=== PATIENT | female | born 1980 | race Caucasian/White ===

== ENCOUNTER 2019-02-17 17:08 | Emergency (ER) | payer SELFPAY ==
[~2019-02-17] VITALS: Ht 157.5 cm; Wt 70.3 kg
--- NOTE | 2019-02-17 17:35 | NUR ---
DR PLAZA IN TO SEE PATIENT.
[2019-02-17] MEDS ORDERED: CLON0.5T13 (17:36)
[2019-02-17] MEDS ORDERED: LITH150C (17:36)
[2019-02-17] MEDS ORDERED: PRAZ2CAP2 PO (17:36)
[2019-02-17] MEDS ORDERED: FLUO20CA25 (17:36)
[2019-02-17] MEDS ORDERED: BENZONATATE 100 MG (TESSALON) CAPSULE PO STA (17:44)
--- NOTE | 2019-02-17 17:50 | ED Cough/URI ---
General Chief Complaint: Cough/Cold/Flu Symptoms Stated Complaint: COUGH,SOB,CONGESTED,FEVER Nursing Triage Note: COUGH/COLD SX REPORTED FOR 2 WEEKS WITHOUT IMPROVEMENT. Sepsis Screen: No Definite Risk History of Present Illness Date Seen by Provider: Feb 17, 2019 Time Seen by Provider: 17:32 38-year-old female active smoker here for 2 weeks of a cough. She has had some subjective fevers, body aches, sore throat. She does not have chest pain except she does have discomfort when she is actually coughing. She has no shortness of breath. No leg swelling. No history of blood clots. She has noticed some tiny specks of what appears to be blood in her respiratory droplets which she coughs. Iubb-rki-bqxoudq cold medicines are providing inadequate relief of her cough. Allergies and Home Medications Allergies Coded Allergies: prochlorperazine (Unverified Adverse Reaction, Unknown, 02/17/19) sulfamethoxazole (Unverified Adverse Reaction, Unknown, 02/17/19) trimethoprim (Unverified Adverse Reaction, Unknown, 02/17/19) Patient Home Medication List Home Medication List Reviewed: Yes Review of Systems Review of Systems Constitutional: see HPI EENTM: see HPI Respiratory: see HPI Cardiovascular: no symptoms reported Gastrointestinal: no symptoms reported Genitourinary: no symptoms reported Musculoskeletal: see HPI Skin: no symptoms reported Psychiatric/Neurological: No Symptoms Reported Hematologic/Lymphatic: No Symptoms Reported Past Ajpekmk-Kboebg-Ppcfxw Hx Past Med/Social Hx: Reviewed Nursing Past Med/Soc Hx Patient Social History Alcohol Use: Denies Use Recreational Drug Use: No Smoking Status: Current Everyday Smoker Type Used: Cigarettes Recent Foreign Travel: No Contact w/Someone Who Travel: No Recent Infectious Disease Expo: No Recent Hopitalizations: No Physical Abuse: No Sexual Abuse: No Mistreated: No Fear: No Seasonal Allergies Seasonal Allergies: No Past Medical History Surgeries: Yes (C/S X 3) Appendectomy, Section, Gallbladder, Tonsillectomy Respiratory: No Cardiac: No Neurological: No : No Genitourinary: No Gastrointestinal: No Musculoskeletal: No Endocrine: No HEENT: No Cancer: No Psychosocial: Yes (night terrors) Anxiety, PTSD, Depression Integumentary: No Blood Disorders: No Physical Exam Vital Signs - First Documented Capillary Refill : Less Than 3 Seconds Height: 5'2.00" Weight: 155lbs. oz. 70.403026bg; BMI Method:Stated General Appearance: no apparent distress (intermittent dry sounding cough) HEENT: other (pharynx is minimally erythematous, there is an upper denture in place, there is some friable appearing mucosa on the bilateral nasal septa) Neck: supple Respiratory: lungs clear, no respiratory distress, no accessory muscle use; No crackles, No rales, No rhonchi, No stridor, No wheezing, No plerual rub Cardiovascular: normal peripheral pulses, regular rate, rhythm, no edema Gastrointestinal: non tender, soft Neurologic/Psychiatric: alert, oriented x 3; No abnormal gait Skin: warm/dry Progress/Results/Core Measures Suspected Sepsis Recent Fever Within 48 Hours: No Infection Criteria Present: Suspected New Infection New/Unexplained Altered Menta: No Sepsis Screen: No Definite Risk SIRS Temperature:97.3 Pulse: 94 Respiratory Rate: 20 Blood Pressure 117 /66 Mean: 83 Results/Orders My Orders Orders - RAD PLAZA DO Chest Pa/Lat (2 View) (02/17/19 17:44) Benzonatate Capsule (Tessalon Perles) (02/17/19 17:44) Vital Signs/I&O 02/17/19 02/17/19 17:15 17:15 Temp 97.3 Pulse 94 Resp 20 B/P (MAP) 117/66 (83) Pulse Ox 99 O2 Delivery Room Air Room Air Capillary Refill : Less Than 3 Seconds Blood Pressure Mean: 83 Progress Note : Progress Note 38-year-old female smoker here with cough, body aches, sore throat. We'll check a chest x-ray for evidence of pneumonia. She does have a history of small hemoptysis with this potentially, however it is unlikely that this is caused by a vascular malformation or a PE, therefore I think we can defer CT angiography or sending a d-dimer. I will treat patient symptomatically with Tessalon. Plan is to discharge with Tessalon to be used as needed if chest x-ray is unremarkable, antibiotics likely indicated even if negative as this can be considered complicated bronchitis. Follow-up with primary care physician. I already advised patient that she is to return immediately or call 911 for any new or worsening symptoms. Departure Impression Primary Impression: Acute bronchitis, complicated Disposition: 01 HOME, SELF-CARE Condition: Stable Departure-Patient Inst. Referrals: NO,LOCAL PHYSICIAN (PCP) Primary Care Physician Patient Instructions: Acute Bronchitis, Adult (DC) Scripts Azithromycin (Azithromycin) 250 Mg Tablet 250 MG PO UD, #6 TAB TAKE 2 TABLETS ON DAY ONE THEN TAKE 1 TABLET DAILY FOR FOUR MORE DAYS Prov: RAD PLAZA DO 02/17/19 Benzonatate (TESSALON PERLES) 100 Mg Capsule 200 MG PO BID PRN for COUGH for 7 Days, #20 CAP Prov: RAD PLAZA DO 02/17/19 RAD PLAZA DO Feb 17, 2019 17:49
--- NOTE | 2019-02-17 17:59 | NUR ---
TESSALON PERLES 200 MG P.O. GIVEN AT THIS TIME ON RETURN FROM XRAY.
--- NOTE | 2019-02-17 18:02 | Diagnostic Imaging Report ---
INDICATION: 2 week history of cough. TECHNIQUE: Two view chest 5:40 PM CORRELATION STUDY: None FINDINGS: The heart size, mediastinal configuration and pulmonary vasculature are within normal limits. The lungs are clear with no consolidating infiltrate. There is no significant pleural effusion or pneumothorax. Visualized osseous structures are unremarkable. IMPRESSION: 1. No radiographic evidence for acute abnormality of the chest. Dictated by: Dictated on workstation # [id number]
[2019-02-17] MEDS ORDERED: AZIT250T12 PO (18:09)
[2019-02-17] MEDS ORDERED: BENZ100C18 PO (18:09)
[2019-02-17 18:16] VITALS: BP 117/66
--- NOTE | 2019-02-17 18:16 | NUR ---
PT DISCHARGED AMBULATORY VERBALIZING UNDERSTANDING OF HOME INSTRUCTIONS REVIEWED.
== END 2019-02-17 18:16 | disposition home or self-care (01) ==
LOC: ER FS 17:10
DX: J20.9 Acute bronchitis, unspecified (principal); F41.9 Anxiety disorder, unspecified; F43.10 Post-traumatic stress disorder, unspecified; F32.9 Major depressive disorder, single episode, unspecified; F17.210 Nicotine dependence, cigarettes, uncomplicated; Z88.2 Allergy status to sulfonamides; Z88.8 Allergy status to other drugs, medicaments and biological substances; Z90.49 Acquired absence of other specified parts of digestive tract; Z98.890 Other specified postprocedural states; Z90.89 Acquired absence of other organs
CPT/HCPCS: 71046

== ENCOUNTER 2019-08-03 20:56 | Emergency (ER) | payer SELFPAY ==
[~2019-08-03] VITALS: Ht 157.5 cm; Wt 69.1 kg
[~2019-08-03 20:56] MED LIST: AZIT250T12 PO; BENZ100C18 PO; CLON0.5T13; FLUO20CA25; LITH150C; PRAZ2CAP2 PO
[2019-08-03] MEDS ORDERED: ONDANSETRON 4 MG (ZOFRAN) ORAL DISSOLVE TAB PO STA (21:14)
[2019-08-03] MEDS ORDERED: KETOROLAC 60 MG/2 ML VIAL IM STA (21:14)
--- NOTE | 2019-08-03 21:21 | ED Lower Extremity ---
General Chief Complaint: Lower Extremity Stated Complaint: RIGHT FOOT PAIN Nursing Triage Note: pt states she fell while getting out of car, co right foot , ankle, and izaguirre pain. Nursing Sepsis Screen: No Definite Risk Source: patient, family History of Present Illness Date Seen by Provider: Aug 03, 2019 Time Seen by Provider: 21:02 Initial Comments 39-year-old female presenting with complaints of right foot and leg pain. She states that she had gotten out of car about an hour ago and was starting to larry after one of the children when she felt something snap in her foot and ankle. She has had severe pain since then. She initially thought it was a bad sprain and that she could just walk off but the pain has worsened. She has not taken anything for the pain. She has not done any ice or elevation of the leg. She came in to the emergency department because she felt like the pain was getting worse. She states that her ankle and foot had swelling immediately after the injury. She denies any prior injuries to the foot or ankle. She has some pain up near her knee as well. Allergies and Home Medications Allergies Coded Allergies: prochlorperazine (Unverified Adverse Reaction, Unknown, 02/17/19) sulfamethoxazole (Unverified Adverse Reaction, Unknown, 02/17/19) trimethoprim (Unverified Adverse Reaction, Unknown, 02/17/19) Home Medications Azithromycin 250 Mg Tablet, 250 MG PO UD TAKE 2 TABLETS ON DAY ONE THEN TAKE 1 TABLET DAILY FOR FOUR MORE DAYS Prescribed by: RAD PLAZA on 02/17/191808 Benzonatate 100 Mg Capsule, 200 MG PO BID PRN for COUGH Prescribed by: RAD PLAZA on 02/17/191808 Ibuprofen 800 Mg Tablet, 800 MG PO Q8H PRN for PAIN Prescribed by: LIT SCOTT on 08/03/19 2200 Patient Home Medication List Home Medication List Reviewed: Yes Review of Systems Constitutional: No chills, No fever EENTM: no symptoms reported Respiratory: no symptoms reported Cardiovascular: no symptoms reported Gastrointestinal: no symptoms reported Genitourinary: no symptoms reported Musculoskeletal: see HPI Skin: no symptoms reported Past Wkqqsfo-Cteohw-Wpjhve Hx Past Med/Social Hx: Reviewed Nursing Past Med/Soc Hx Patient Social History Alcohol Use: Denies Use Recreational Drug Use: No Type Used: Cigarettes Recent Foreign Travel: No Contact w/Someone Who Travel: No Recent Infectious Disease Expo: No Recent Hopitalizations: No Physical Abuse: No Sexual Abuse: No Mistreated: No Fear: No Seasonal Allergies Seasonal Allergies: No Past Medical History Surgeries: Yes (C/S X 3) Appendectomy, Section, Gallbladder, Tonsillectomy Respiratory: No Cardiac: No Neurological: No Genitourinary: No Gastrointestinal: No Musculoskeletal: No Endocrine: No HEENT: No Cancer: No Psychosocial: Yes (night terrors) Anxiety, PTSD, Depression Integumentary: No Blood Disorders: No Physical Exam Vital Signs Vital Signs - First Documented 08/03/19 21:04 Temp 37.2 Pulse 110 Resp 16 B/P (MAP) 108/52 (70) Pulse Ox 97 O2 Delivery Room Air Capillary Refill : Less Than 3 Seconds Height, Weight, BMI Height: 5'2.00" Weight: 155lbs. oz. 70.469597to; 27.00 BMI Method:Stated General Appearance: WD/WN, mild distress Cardiovascular: normal peripheral pulses Knees: right knee bone tenderness (just below her knee and over proximal fibula) Ankles: right ankle limited range of motion (due to pain), right ankle pain (medial aspect of ankle and foot) Feet: right foot pain (medial ankle and proximal foot) Neurologic/Tendon: normal sensation, normal motor functions, normal tendon functions Neurologic/Psychiatric: alert, oriented x 3 Skin: normal color, warm/dry Progress/Results/Core Measures Results/Orders My Orders Orders - LIT SCOTT MD Ketorolac Injection (Toradol Injection) (08/03/19 21:14) Ondansetron Oral Dissolve Tab (Zofran (08/03/19 21:14) Tibia Fibula 2 View Right (08/03/19 21:28) Foot 3 View Right (08/03/19 21:28) Orthopedic Equiment (08/03/19 22:06) Crutches (08/03/19 22:06) Vital Signs/I&O 08/03/19 08/03/19 21:04 22:17 Temp 37.2 37.2 Pulse 110 110 Resp 16 16 B/P (MAP) 108/52 (70) 108/52 (70) Pulse Ox 97 97 O2 Delivery Room Air Blood Pressure Mean: 70 Progress Progress Note #1: Progress Note Toradol for pain and Zofran ODT for nausea as pt reports the pain is so bad that it is making her nauseated. 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 will check xrays of the foot and tib/fib so the ankle would be included. Progress Note #2: Progress Note No acute fracture or dislocation seen on imaging. counseled on follow up and return precautions. Treat symptomatically and RICE therapy. check with clinic if not improving Diagnostic Imaging Diagonstic Imaging: Xray Plain Films/CT/US/NM/MRI: leg (and foot) Comments NAME: BEAU GUZMAN [facility] REC#: [id number] PT STATUS: REG ER : 1980 PHYSICIAN: LIT SCOTT MD ADMIT DATE: 08/03/19/ER FS Draft Date of Exam:08/03/19 TIBIA FIBULA 2 VIEW RIGHT INDICATION: Injury to right leg AP and lateral views of the right tibia and fibula performed. No fracture or acute bony abnormality is seen. IMPRESSION: Negative right tibia and fibula. Dictated on workstation # [id number] Dict: 08/03/192148 Trans: 08/03/192151 MARIPOSA [id number] Interpreted by: MEGAN ADORNO MD Electronically signed by: NAME: BEAU GUZMAN [facility] REC#: [id number] PT STATUS: REG ER : 1980 PHYSICIAN: LIT SCOTT MD ADMIT DATE: 08/03/19/ER FS Draft Date of Exam:08/03/19 FOOT 3 VIEW RIGHT INDICATION: Injury to right foot. AP, oblique, and lateral views of the right foot are obtained. No fracture or acute bony abnormality is seen. Joint spaces are unremarkable. IMPRESSION: Negative right foot. Dictated on workstation # [id number] Dict: 08/03/192148 Trans: 08/03/192150 [place] [id number] Interpreted by: MEGAN ADORNO MD Electronically signed by: Reviewed: Reviewed by Me Departure Impression Primary Impression: Right ankle sprain Qualified Codes: S93.401A - Sprain of unspecified ligament of right ankle, initial encounter Additional Impression: Right foot sprain Qualified Codes: S93.601A - Unspecified sprain of right foot, initial encounter Disposition: HOME, SELF-CARE Condition: Stable Departure-Patient Inst. Decision time for Depature: 21:59 Referrals: NO,LOCAL PHYSICIAN (PCP) Primary Care Physician [facility] Patient Instructions: Ankle Sprain (DC), Foot Sprain (DC), How to Use Crutches Add. Discharge Instructions: Ice 20-30 minutes every few hours as needed for pain and swelling. Weight bearing as tolerated. Check with clinic or Orthopedics if not improving in the next week All discharge instructions reviewed with patient and/or family. Voiced under standing. Scripts Ibuprofen (Ibuprofen) 800 Mg Tablet 800 MG PO Q8H PRN for PAIN for 10 Days, #30 TAB 0 Refills Prov: LIT SCOTT MD 08/03/19 LIT SCOTT MD Aug 03, 2019 21:20
--- NOTE | 2019-08-03 21:51 | Diagnostic Imaging Report ---
INDICATION: Injury to right foot. AP, oblique, and lateral views of the right foot are obtained. No fracture or acute bony abnormality is seen. Joint spaces are unremarkable. IMPRESSION: Negative right foot. Dictated by: Dictated on workstation # [id number]
--- NOTE | 2019-08-03 21:52 | Diagnostic Imaging Report ---
INDICATION: Injury to right leg AP and lateral views of the right tibia and fibula performed. No fracture or acute bony abnormality is seen. IMPRESSION: Negative right tibia and fibula. Dictated by: Dictated on workstation # [id number]
[2019-08-03] MEDS ORDERED: IBUP-1780 PO (22:00)
--- NOTE | 2019-08-03 22:15 | NUR ---
pt called mother and they have crutches at home pt can use, pt refused our crutches
[2019-08-03 22:17] VITALS: BP 108/52
== END 2019-08-03 22:17 | disposition home or self-care (01) ==
LOC: EDUNIT# 20:56 → ER FS 20:57
DX: S93.401A Sprain of unspecified ligament of right ankle, initial encounter (principal); S93.601A Unspecified sprain of right foot, initial encounter; F41.9 Anxiety disorder, unspecified; F32.9 Major depressive disorder, single episode, unspecified; F43.10 Post-traumatic stress disorder, unspecified; Z88.1 Allergy status to other antibiotic agents; Z88.2 Allergy status to sulfonamides; Z90.49 Acquired absence of other specified parts of digestive tract; Z90.89 Acquired absence of other organs; X50.1XXA Overexertion from prolonged static or awkward postures, initial encounter
CPT/HCPCS: 73590; 73630

== ENCOUNTER 2020-04-10 10:10 | Emergency (ER) | payer SELFPAY ==
[~2020-04-10] VITALS: Ht 157 cm; Wt 74.6 kg
[~2020-04-10 10:10] MED LIST changes: -CLON0.5T13; +CLON0.5T4; -FLUO20CA25; +FLUO20CA46; +IBUP-1780 PO
--- OUTSIDE RECORDS SUMMARY | 2020-04-10 10:14 | XMS REPORT ---
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00 14 Aug, 2018 0 198 584423 Problem Anxiety state F41.1 14 Aug, 2018 0 198 478530 Problem Acute bronchitis J20.9 May, 0 96640767 Problem Severe episode of recurrent major depressive disorder, without psychotic features F33.2 Active 38369598 Problem Insomnia G47.00 Active 412317457 Problem Depression F32.9 Aug, 0 331449 005 Problem Sciatic pain, right 724.3 Jan, 0 18440595 Problem Lymphocytosis D72.820 Active 833081 09 Problem Acute bronchitis 466.0 13 May, 2013 0 71998957 Problem Night terrors, adult 307.46 14 Aug, 2018 0 568220624 Problem Sciatic pain, right M54.31 Jan, 0 48065577 Problem PTSD (post-traumatic stress disorder) F43.10 Active 07813612 Problem Anxiety F41.9 Active 41698946 Problem Sleep terrors [night terrors] F51.4 Active 652139746 Problem Anxiety disorder, unspecified F41.9 Active 899189636 ALLERGIES No Information ENCOUNTERS Encounter Location Date Diagnosis [facility] [address] [id number] [place] [address] Dec, Anxiety F41.9 [facility] [address] [id number] [place] [address] Nov, [facility] [address] [place] [address] RD [id number] [place] [address] Nov, Anxiety F41.9 [facility] [address] [place], [place] [address] [id number] [place] [address] Oct, Lymphocytosis D72.820 [facility] [address] [place] [address] RD [id number] [place] [address] Oct, Sleep terrors [night terrors] F51.4 ; PT SD (post-traumatic stress disorder) F43.10 and Encounter for immunization Z23 [facility] [address] [place] [address] RD [id number] [place] [address] Sep, [facility] F41.9 [facility] [address] [place], [place] [address] [place] [id number] [place] [address] Aug, [facility] [address] [place] [address] RD [id number] [place] [address] Aug, Anxiety F41.9 ; PTSD (post-traumatic str ess disorder) F43.10 ; Depression F32.9 ; Night terrors, adult F51.4 and Insomnia G47.00 [facility] [address] [place] [address] RD [id number] [place] [address] Jul, Medication monitoring encounter Z51.81 [facility] [id number] [place] [address] Jun, Medication monitoring encounter Z51.81 [facility] [address] [id number] [place] [address] May, Medication monitoring encounter Z51.81 ; Sleep terrors [night terrors] F51.4 and PTSD (post-traumatic stress disorder) F43.10 [facility] [address] [place] [address] RD [id number] [place] [address] Mar, [facility] [id number] [place] [address] Mar, Medication monitoring encounter Z51.[address] [id number] [place] [address] Mar, Medication monitoring encounter Z51.[address] [id number] [place] [address] February, Medication monitoring encounter Z51.81 ; PTSD (post-traumatic stress disorder) F43.10 ; Depression F32.9 ; Anxiety disorder, unspecified F41.9 and Sleep terrors [night terrors] F51.4 [facility] [address] [place], [place] [address] [id number] [place] [address] February, Medication monitoring encounter Z51.[address] [place], [place] [address] RD [id number] [place] [address] February, Medication monitoring encounter Z51.[address] [place], [place] [address] [id number] [place] [address] February, Medication monitoring encounter Z51.[address] [place], [place] [address] [id number] [place] [address] Jan, Medication monitoring encounter Z51.[address] [place], [place] [address] [place] [id number] [place] [address] Jan, Medication monitoring encounter Z51.81 a nd Anxiety F41.9 [facility] [address] [id number] [place] [address] Dec, Medication monitoring encounter Z51.[address] [id number] [place] [address] Dec, Medication monitoring encounter Z51.81 ; Severe episode of recurrent major depressive disorder, without psychotic features F33.2 ; PTSD (post- traumatic stress disorder) F43.10 and Anxiety F41.9 [facility] [address] [place], [place] [address] [id number] [place] [address] Nov, [facility] [address] [id number] [place] [address] Nov, [facility] [address] [id number] [place] [address] Oct, [facility] [place] [address] [facility] [id number] [place] [address] Oct, [facility] [address] [facility] [id number] [address] [place] [address] Sep, [facility] [address] [facility] [id number] [address] [place] [address] Sep, [facility] [address] [facility] [id number] [address] [place] [address] Sep, [facility] [address] [facility] [id number] [address] [place] [address] Aug, IMMUNIZATIONS No Known Immunizations SOCIAL HISTORY Never Assessed REASON FOR VISIT refill PLAN OF CARE VITAL SIGNS MEDICATIONS Medication Instructions Dosage Frequency Start Date End Date Duration S tatus Klonopin 0.5 MG Orally bid prn 1 tablet Oct, 28 days Active RESULTS No Results PROCEDURES No Known procedures INSTRUCTIONS MEDICATIONS ADMINISTERED No Known Medications MEDICAL (GENERAL) HISTORY Type Description Date Medical History depression Medical History sciatic pain-right Medical History anxiety Medical History PTSD Surgical History cholecystectomy Surgical History appendectomy Surgical History tonsillectomy Surgical History section x 3 Surgical History D n C x 2 Hospitalization History surgeries
--- OUTSIDE RECORDS SUMMARY | 2020-04-10 10:14 | XMS REPORT | Continuity of Care Document ---
Author Organization Unknown Address Unknown Phone Unavailable Allergies Active Description Code Type Severity Reaction Onset Reported/Identified Relationship to Patient Clinical Status Yes prochlorperazine [id number] Drug Allergy Unknown N/A 02/17/2019 Yes sulfamethoxazole [id number] Drug Allergy Unknown N/A 02/17/2019 Yes trimethoprim [id number] Drug Allergy Unknown N/A 02/17/2019 Medications There is no data. Problems Date Dx Coded Attending Type Code Diagnosis Diagnosed By 02/17/2019 RAD PLAZA DO Ot F17.210 NICOTINE DEPENDENCE, CIGARETTES, UNCOMPL 02/17/2019 RAD PLAZA DO T Ot F32. 9 MAJOR DEPRESSIVE DISORDER, SINGLE EPISOD 02/17/2019 RAD PLAZA DO Ot F41. 9 ANXIETY DISORDER, UNSPECIFIED 02/17/2019 RAD PLAZA DO T Ot F43. 10 POST-TRAUMATIC STRESS DISORDER, UNSPECIF 02/17/2019 RAD PLAZA DO Ot J20. 9 ACUTE BRONCHITIS, UNSPECIFIED 02/17/2019 RAD PLAZA DO Ot R05 COUGH 02/17/2019 RAD PLAZA DO T Ot Z88. 2 ALLERGY STATUS TO SULFONAMIDES STATUS 02/17/2019 RAD PLAZA DO T Ot Z88. 8 ALLERGY STATUS TO OTH DRUG/MEDS/BIOL SUB 02/17/2019 RAD PLAZA DO T Ot Z90. 49 ACQUIRED ABSENCE OF OTHER SPECIFIED PART 02/17/2019 RAD PLAZA DO T Ot Z90. 89 ACQUIRED ABSENCE OF OTHER ORGANS 02/17/2019 RAD PLAZA DO T Ot Z98.890 OTHER SPECIFIED POSTPROCEDURAL STATES 02/20/2019 RAD PLAZA DO Ot F17.210 NICOTINE DEPENDENCE, CIGARETTES, UNCOMPL 02/20/2019 RAD PLAZA DO T Ot F32. 9 MAJOR DEPRESSIVE DISORDER, SINGLE EPISOD 02/20/2019 RAD PLAZA DO T Ot F41. 9 ANXIETY DISORDER, UNSPECIFIED 02/20/2019 RAD PLAZA DO T Ot F43. 10 POST-TRAUMATIC STRESS DISORDER, UNSPECIF 02/20/2019 BOLA QUINONES, RAD T Ot J20. 9 ACUTE BRONCHITIS, UNSPECIFIED 02/20/2019 BOLA QUINONESDARRYLED T Ot R05 COUGH 02/20/2019 BOLA QUINONESRAD T Ot Z88. 2 ALLERGY STATUS TO SULFONAMIDES STATUS 02/20/2019 BOLA QUINONESDARRYLED T Ot Z88. 8 ALLERGY STATUS TO OTH DRUG/MEDS/BIOL SUB 02/20/2019 BOLA QUINONESDARRYLED T Ot Z90. 49 ACQUIRED ABSENCE OF OTHER SPECIFIED PART 02/20/2019 BOLA QUINONES RAD T Ot Z90. 89 ACQUIRED ABSENCE OF OTHER ORGANS 02/20/2019 BOLA QUINONESDARRYLED T Ot Z98.890 OTHER SPECIFIED POSTPROCEDURAL STATES 08/03/2019 LIT SCOTT MD, Ot F32.9 MAJOR DEPRESSIVE DISORDER, SINGLE EPISOD 08/03/2019 LIT SCOTT MD, Ot F41.9 ANXIETY DISORDER, UNSPECIFIED 08/03/2019 LIT SCOTT MD, Ot F43.1 0 POST-TRAUMATIC STRESS DISORDER, UNSPECIF 08/03/2019 LTI SCOTT MD Ot M79.6 71 PAIN IN RIGHT FOOT 08/03/2019 LIT SCOTT MD, Ot S93.401A SPRAIN OF UNSPECIFIED LIGAMENT OF RIGHT 08/03/2019 LIT SCOTT MD, Ot S93.601A UNSPECIFIED SPRAIN OF RIGHT FOOT, INITIA 08/03/2019 LIT SCOTT MD, Ot X50.1XXA OVEREXERTION FROM PROLONGED STATIC OR AW 08/03/2019 LIT SCOTT MD, Ot Z88.1 ALLERGY STATUS TO OTHER ANTIBIOTIC AGENT 08/03/2019 LIT SCOTT MD, Ot Z88.2 ALLERGY STATUS TO SULFONAMIDES STATUS 08/03/2019 LIT SCOTT MD, Ot Z90.4 9 ACQUIRED ABSENCE OF OTHER SPECIFIED PART 08/03/2019 LIT SCOTT MD, Ot Z90.8 9 ACQUIRED ABSENCE OF OTHER ORGANS 08/09/2019 LIT SCOTT MD, Ot F32.9 MAJOR DEPRESSIVE DISORDER, SINGLE EPISOD 08/09/2019 LIT SCOTT MD, Ot F41.9 ANXIETY DISORDER, UNSPECIFIED 08/09/2019 LIT SCOTT MD, Ot F43.1 0 POST-TRAUMATIC STRESS DISORDER, UNSPECIF 08/09/2019 LIT SCOTT MD, Ot M79.6 71 PAIN IN RIGHT FOOT 08/09/2019 LIT SCOTT MD, Ot S93.401A SPRAIN OF UNSPECIFIED LIGAMENT OF RIGHT 08/09/2019 LIT SCOTT MD, Ot S93.601A UNSPECIFIED SPRAIN OF RIGHT FOOT, INITIA 08/09/2019 LIT SCOTT MD, Ot X50.1XXA OVEREXERTION FROM PROLONGED STATIC OR AW 08/09/2019 LIT SCOTT MD, Ot Z88.1 ALLERGY STATUS TO OTHER ANTIBIOTIC AGENT 08/09/2019 LIT SCOTT MD, Ot Z88.2 ALLERGY STATUS TO SULFONAMIDES STATUS 08/09/2019 LIT SCOTT MD, Ot Z90.4 9 ACQUIRED ABSENCE OF OTHER SPECIFIED PART 08/09/2019 LIT SCOTT MD, Ot Z90.8 9 ACQUIRED ABSENCE OF OTHER ORGANS Procedures There is no data. Results Test Result Range LITHIUM (ESKALITH(R)), SERUM - 01/01/19 15:12 LITHIUM <0.3 mmol/L 0.6-1.2 PDM - 09 PANEL (PROFILE 1) - 01/01/19 15 :12 Prescribed Drug 1 Klonopin(TM) NRG Creatinine 24.4 mg/dL > or = 20.0 pH 7.01 4.5 - 9.0 Oxidant NEGATIVE mcg/mL <200 Amphetamines NEGATIVE ng/mL <500 medMATCH Amphetamines CONSISTENT NRG Benzodiazepines POSITIVE ng/mL <100 Marijuana Metabolite NEGATIVE ng/mL <20 medMATCH Marijuana Metab CONSISTENT NRG Cocaine Metabolite NEGATIVE ng/mL <150 medMATCH Cocaine Metab CONSISTENT NRG Opiates NEGATIVE ng/mL <100 medMATCH Opiates CONSISTENT NRG Oxycodone NEGATIVE ng/mL <100 medMATCH Oxycodone CONSISTENT NRG COMMENT NRG Alphahydroxyalprazolam NEGATIVE ng/mL <25 medMATCH aOH alprazolam CONSISTENT NRG Alphahydroxymidazolam NEGATIVE ng/mL < 50 medMATCH aOH midazolam CONSISTENT NRG Alphahydroxytriazolam NEGATIVE ng/mL < 50 medMATCH aOH triazolam CONSISTENT NRG Aminoclonazepam 61 ng/mL <25 medMATCH Aminoclonazepam CONSISTENT NRG Hydroxyethylflurazepam NEGATIVE ng/mL <50 medMATCH OH,Et flurazepam CONSISTENT NR G Lorazepam NEGATIVE ng/mL <50 medMATCH Lorazepam CONSISTENT NRG Nordiazepam NEGATIVE ng/mL <50 medMATCH Nordiazepam CONSISTENT NRG Oxazepam NEGATIVE ng/mL <50 medMATCH Oxazepam CONSISTENT NRG Temazepam NEGATIVE ng/mL <50 medMATCH Temazepam CONSISTENT NRG Barbiturates NEGATIVE ng/mL <300 medMATCH Barbiturates CONSISTENT NRG Methadone Metabolite NEGATIVE ng/mL <100 medMATCH Methadone Metab CONSISTENT NRG Phencyclidine NEGATIVE ng/mL <25 medMATCH Phencyclidine CONSISTENT NRG LITHIUM (ESKALITH(R)), SERUM - 03/27/19 09:21 LITHIUM 1.0 mmol/L 0.6-1.2 VALPROIC ACID/DEPAKOTE - 10/31/19 10:34 VALPROIC ACID <12.5 mg/L 50.0-100.0 Encounters ACCT No. Visit Date/Time Discharge Status Pt. Type Provider Facility Loc./Unit Complaint [id number] 10/31/2019 10:00:00 10/31/2019 23:59: 59 [id number] 10/31/2019 10:00:00 Document Registration [id number] 03/27/2019 09:00:00 Document Registration [id number] 01/01/2019 13:20:00 Document Registration [id number] 08/03/2019 20:57:00 22:17:00 DIS Emergency LIT SCOTT MD [facility] ER FS RIGHT FOOT PAIN [id number] 02/17/2019 17:10:00 18:16:00 DIS Emergency RAD PLAZA DO [facility] ER FS COUGH,SOB,CONGESTED,FEV ER
[2020-04-10] MEDS ORDERED: morphine INJ 10 MG/ML 1ML (SYR OR VIAL) IVP STA (10:33)
[2020-04-10] MEDS ORDERED: ONDANSETRON 4 MG/2 ML (SDV) Z0FRAN IVP ONE (10:45)
[2020-04-10 11:00] LABS: BASOPHILS # (AUTO) 0.1 10^3/uL (0.0-0.1); BASOPHILS % (AUTO) 1 % (0-10); EOSINOPHILS # (AUTO) 0.2 10^3/uL (0.0-0.3); EOSINOPHILS % (AUTO) 1 % (0-10); HEMATOCRIT 42 % (35-52); HEMOGLOBIN 14.2 G/DL (11.5-16.0); LYMPHOCYTES # (AUTO) 2.3 X 10^3 (1.0-4.0); LYMPHOCYTES % (AUTO) 15 % (12-44); MEAN CORPUSCULAR HEMOGLOBIN 31 PG (25-34); MEAN CORPUSCULAR HGB CONC 34 G/DL (32-36); MEAN CORPUSCULAR VOLUME 90 FL (80-99); MEAN PLATELET VOLUME 10.4 FL (7.4-10.4); MONOCYTES # (AUTO) 0.7 X 10^3 (0.0-1.0); MONOCYTES % (AUTO) 4 % (0-12); NEUTROPHILS # (AUTO) 12.4 X 10^3 (1.8-7.8); NEUTROPHILS % (AUTO) 79 % (42-75); PLATELET COUNT 414 10^3/uL (130-400); RED CELL DISTRIBUTION WIDTH 12.2 % (10.0-14.5); WHITE BLOOD COUNT 15.8 10^3/uL (4.3-11.0)
[2020-04-10 11:13] LABS: BILIRUBIN,URINE NEGATIVE (NEGATIVE); CLARITY,URINE CLEAR; COLOR,URINE DARK YELLOW; GLUCOSE, URINE (UA) NEGATIVE (NEGATIVE); KETONES,URINE NEGATIVE (NEGATIVE); NITRITE,URINE POSITIVE (NEGATIVE); PH,URINE 6.5 (5-9); PROTEIN,URINE NEGATIVE (NEGATIVE)
[2020-04-10 11:14] LABS: BACTERIA,URINE TRACE /HPF; LEUKOCYTE ESTERASE ,URINE NEGATIVE (NEGATIVE); RBC,URINE 0-2 /HPF
[2020-04-10] MEDS ORDERED: NS 100 ML (IVPB) BAG IV ONE (11:15)
[2020-04-10] MEDS ORDERED: CATHETER FLUSH 10 ML SYR IV PRN (11:15)
[2020-04-10] MEDS ORDERED: IOHEXOL 350 MG/ML 100 ML (OMNIPAQUE 350) VIAL IV ONE (11:15)
[2020-04-10] MEDS ORDERED: HOLD METFORMIN - RECEIVED CONTRAST 20 ML VIAL IV SCH (11:15)
[2020-04-10 11:26] LABS: BAND NEUTROPHILS 3 %; LYMPHOCYTES % (MANUAL) 6 %; NEUTROPHILS % (MANUAL) 77 %
[2020-04-10 11:27] LABS: ATYPICAL LYMPHOCYTES 9 %; BASOPHILS % (MANUAL) 0 %; EOSINOPHILS % (MANUAL) 0 %; MONOCYTES % (MANUAL) 4 %
[2020-04-10 11:28] LABS: PLATELET ESTIMATE INCREASED; RBC MORPH NORMAL
--- NOTE | 2020-04-10 11:28 | ED Abdominal Pain ---
General Chief Complaint: Abdominal/GI Problems Stated Complaint: ABD PAIN Nursing Triage Note: Is having right sided abdominal pain, flank pain, and pain radiating down the back of her right leg. Has been ongoing for past 2 months. Has hx of kidney stones, so she assumed that's what it was from. Started vomiting 2 days ago from the pain. Pain rated at 8/10 currently. Has taken tylenol and ibuprofen for pain, last dose was 1000 mg tylenol at 0530 this morning. Sepsis Screen: No Definite Risk Source of Information: Patient History of Present Illness Date Seen by Provider: Apr 10, 2020 Time Seen by Provider: 11:00 Initial Comments Patient is a 40-year-old female presents with intermittent right upper quadrant pain radiating to right flank 2 months. Pain is moderate distress. Described as sharp and is worse with palpation and movement. Is partially improved with position change and rest. Patient is being evaluated by her primary care doctor for her symptoms prior to today. Patient reports nausea vomiting onset us morning 30 minutes prior to ED arrival and watery diarrhea for the past week. Patient denies fever chills, sweats. Previous appendectomy, cholecystectomy and history of kidney stones. No urinary frequency urgency or dysuria. Patient is currently on her menstrual period. Timing/Duration: Changing Over Time, Getting Worse, Other Severity/Quality: Moderate Location: RUQ Radiation: Back Activities at Onset: None Modifying Factors: Improves With Movement, Improves With Palpation Associated Symptoms: Nausea/Vomiting Allergies and Home Medications Allergies Coded Allergies: prochlorperazine (Unverified Adverse Reaction, Unknown, 02/17/19) sulfamethoxazole (Unverified Adverse Reaction, Unknown, 02/17/19) trimethoprim (Unverified Adverse Reaction, Unknown, 02/17/19) Home Medications Azithromycin 250 Mg Tablet, 250 MG PO UD TAKE 2 TABLETS ON DAY ONE THEN TAKE 1 TABLET DAILY FOR FOUR MORE DAYS Prescribed by: RAD PLAZA on 02/17/191808 Benzonatate 100 Mg Capsule, 200 MG PO BID PRN for COUGH Prescribed by: RAD PLAZA on 02/17/191808 Ibuprofen 800 Mg Tablet, 800 MG PO Q8H PRN for PAIN Prescribed by: LIT SCOTT on 08/03/19 2200 Patient Home Medication List Home Medication List Reviewed: Yes Review of Systems Review of Systems Constitutional: see HPI EENTM: See HPI Respiratory: See HPI Cardiovascular: See HPI Gastrointestinal: See HPI Genitourinary: See HPI Musculoskeletal: see HPI Skin: see HPI Psychiatric/Neurological: See HPI Endocrine: See HPI Hematologic/Lymphatic: See HPI All Other Systems Reviewed Negative Unless Noted: Yes Past Wlcjfew-Qyiujr-Uakxwv Hx Past Med/Social Hx: Reviewed Nursing Past Med/Soc Hx Patient Social History Alcohol Use: Denies Use Recreational Drug Use: No Smoking Status: Current Everyday Smoker Type Used: Cigarettes 2nd Hand Smoke Exposure: Yes Recent Foreign Travel: No Contact w/Someone Who Travel: No Recent Infectious Disease Expo: No Recent Hopitalizations: No Seasonal Allergies Seasonal Allergies: No Past Medical History Surgeries: Yes (C/S X 3) Appendectomy, Section, Gallbladder, Tonsillectomy Respiratory: No Cardiac: No Neurological: No Genitourinary: No Gastrointestinal: Yes (kidney stones) Musculoskeletal: No Endocrine: No HEENT: No Cancer: No Psychosocial: Yes (night terrors) Anxiety, PTSD, Depression Integumentary: No Blood Disorders: No Physical Exam Vital Signs Vital Signs - First Documented 04/10/20 10:16 Temp 36.4 Pulse 80 Resp 16 B/P (MAP) 128/86 (100) Pulse Ox 98 Capillary Refill : Less Than 3 Seconds Height/Weight/BMI Height: 5'2.00" Weight: 155lbs. oz. [id number]; 30.00 BMI Method:Stated General Appearance: WD/WN, no apparent distress HEENT: PERRL/EOMI, normal ENT inspection Neck: non-tender, full range of motion, supple, normal inspection Respiratory: lungs clear Cardiovascular: regular rate, rhythm Gastrointestinal: soft, other (RUQ PAIN/TENDERNESS) Extremities: normal range of motion, non-tender Back: normal inspection Neurologic/Psychiatric: emergency medical service manager II-XII nml as tested, no motor/sensory deficits, alert Skin: normal color Focused Exam Sepsis Stage: Ruled Out Progress/Results/Core Measures Results/Orders Lab Results Laboratory Tests Test 04/10/20 10:42 04/10/20 10:45 Range/Units White Blood Count 15.8 H 4.3-11.0 10^3/uL Red Blood Count 4.61 4.35-5.85 10^6/uL Hemoglobin 14.2 11.5-16.0 G/DL Hematocrit 42 35-52 % Mean Corpuscular Volume 90 80-99 FL Mean Corpuscular Hemoglobin 31 25-34 PG Mean Corpuscular Hemoglobin Concent 34 32-36 G/DL Red Cell Distribution Width 12.2 10.0-14.5 % Platelet Count 414 H 130-400 10^3/uL Mean Platelet Volume 10.4 7.4-10.4 FL Neutrophils (%) (Auto) 79 H 42-75 % Lymphocytes (%) (Auto) 15 12-44 % Monocytes (%) (Auto) 4 0-12 % Eosinophils (%) (Auto) 1 0-10 % Basophils (%) (Auto) 1 0-10 % Neutrophils # (Auto) 12.4 H 1.8-7.8 X 10^3 Lymphocytes # (Auto) 2.3 1.0-4.0 X 10^3 Monocytes # (Auto) 0.7 0.0-1.0 X 10^3 Eosinophils # (Auto) 0.2 0.0-0.3 10^3/uL Basophils # (Auto) 0.1 0.0-0.1 10^3/uL Neutrophils % (Manual) 77 % Lymphocytes % (Manual) 6 % Monocytes % (Manual) 4 % Eosinophils % (Manual) 0 % Basophils % (Manual) 0 % Band Neutrophils 3 % Atypical Lymphocytes 9 % Platelet Estimate INCREASED Blood Morphology Comment NORMAL Sodium Level 136 135-145 MMOL/L Potassium Level 3.7 3.6-5.0 MMOL/L Chloride Level 101 98-107 MMOL/L Carbon Dioxide Level 24 21-32 MMOL/L Anion Gap 11 5-14 MMOL/L Blood Urea Nitrogen 9 7-18 MG/DL Creatinine 0.89 0.60-1.30 MG/DL Estimat Glomerular Filtration Rate > 60 BUN/Creatinine Ratio 10 Glucose Level 110 H 70-105 MG/DL Calcium Level 10.6 H 8.5-10.1 MG/DL Corrected Calcium 8.5-10.1 MG/DL Total Bilirubin 0.5 0.1-1.0 MG/DL Aspartate Amino Transf (AST/SGOT) 17 5-34 U/L Alanine Aminotransferase (ALT/SGPT) 7 0-55 U/L Alkaline Phosphatase 67 40-136 U/L Total Protein 7.2 6.4-8.2 GM/DL Albumin 4.7 H 3.2-4.5 GM/DL Lipase 25 8-78 U/L Urine Color DARK YELLOW Urine Clarity CLEAR Urine pH 6.5 5-9 Urine Specific [place] 1.010 L 1.016-1.022 Urine Protein NEGATIVE NEGATIVE Urine Glucose (UA) NEGATIVE NEGATIVE Urine Ketones NEGATIVE NEGATIVE Urine Nitrite POSITIVE H NEGATIVE Urine Bilirubin NEGATIVE NEGATIVE Urine Urobilinogen 0.2 < = 1.0 MG/DL Urine Leukocyte Esterase NEGATIVE NEGATIVE Urine RBC (Auto) NEGATIVE NEGATIVE Urine RBC 0-2 /HPF Urine WBC 2-5 /HPF Urine Crystals NONE /LPF Urine Bacteria TRACE /HPF Urine Casts NONE /LPF Urine Mucus NEGATIVE /LPF Urine Culture Indicated YES My Orders Orders - CINDY JONES DO Cbc With Automated Diff (04/10/20 10:33) Comprehensive Metabolic Panel (04/10/20 10:33) Lipase (04/10/20 10:33) Ua Culture If Indicated (04/10/20 10:33) Urine Bedside (04/10/20 10:33) Ct Abdomen/Pelvis W (04/10/20 10:33) Morphine Injection (Morphine Injection (04/10/20 10:33) Ondansetron Injection (Zofran Injectio (04/10/20 10:45) Manual Differential (04/10/20 10:42) Iohexol Injection (Omnipaque 350 Mg/Ml 1 (04/10/20 11:15) Received Contrast (Hold Metformin- Contr (04/10/20 11:15) Sodium Chloride Flush (Catheter Flush Sy (04/10/20 11:15) Ns (Ivpb) (Sodium Chloride 0.9% Ivpb Bag (04/10/20 11:15) Urine Culture (04/10/20 10:45) Ketorolac Injection (Toradol Injection) (04/10/20 12:45) Medications Given in ED Current Medications Medications Dose Ordered Sig/Rosana Route Start Time Stop Time Status Last Admin Dose Admin Iohexol 100 ml ONCE ONCE IV 04/10/20 11:15 04/10/20 11:24 DC 04/10/20 11:33 100 ML Ondansetron HCl 4 mg ONCE ONCE IVP 04/10/20 10:45 04/10/20 10:46 DC 04/10/20 10:47 4 MG Sodium Chloride 100 ml ONCE ONCE IV 04/10/20 11:15 04/10/20 11:24 DC 6/13/20 11:34 80 ML Vital Signs/I&O 04/10/20 10:16 Temp 36.4 Pulse 80 Resp 16 B/P (MAP) 128/86 (100) Pulse Ox 98 Blood Pressure Mean: 100 Departure Communication (Admissions) CT abdomen and pelvis: Diarrhea is bowel. No evidence of obstruction or acute process. Impression Primary Impression: Abdominal pain Additional Impression: Nausea and vomiting Disposition: HOME, SELF-CARE Condition: Critical Admissions Time/Decision to Admit Time: 12:39 Departure-Patient Inst. Referrals: NO,LOCAL PHYSICIAN (PCP/Family) Primary Care Physician Patient Instructions: Diarrhea in Adolescents and Adults, Acute Abdomen (Belly Pain) Add. Discharge Instructions: Please drink clear liquids only for the next 6-12 hours and then advance to bl and diet as tolerated. Take newly prescribed medications as directed. Follow up with your PCP in 2-3 days as needed. Return to the ED if new or worsening symptoms. All discharge instructions reviewed with patient and/or family. Voiced understanding. Scripts Tramadol HCl (Tramadol HCl) 50 Mg Tablet 50 MG PO Q6H, #10 TAB Prov: CINDY JONES DO 04/10/20 Ondansetron (Ondansetron Odt) 4 Mg Tab.rapdis 4 MG PO Q6H, #10 TAB Prov: CINDY JONES DO 04/10/20 CINDY JONES DO Apr 10, 2020 11:28
[2020-04-10 11:29] LABS: CHLORIDE 101 MMOL/L (98-107); POTASSIUM 3.7 MMOL/L (3.6-5.0); SODIUM 136 MMOL/L (135-145)
[2020-04-10 11:30] LABS: ALANINE AMINOTRANSFERASE 7 U/L (0-55); ALBUMIN 4.7 GM/DL (3.2-4.5); ALKALINE PHOSPHATASE 67 U/L (40-136); BILIRUBIN,TOTAL 0.5 MG/DL (0.1-1.0); BUN/CREATININE RATIO 10; CALCIUM 10.6 MG/DL (8.5-10.1); CARBON DIOXIDE 24 MMOL/L (21-32); CREATININE SERUM 0.89 MG/DL (0.60-1.30); GFR ESTIMATED > 60; GLUCOSE 110 MG/DL (70-105); LIPASE 25 U/L (8-78); TOTAL PROTEIN 7.2 GM/DL (6.4-8.2)
--- NOTE | 2020-04-10 12:16 | Diagnostic Imaging Report ---
PROCEDURE: CT abdomen and pelvis with contrast. TECHNIQUE: Multiple contiguous axial images were obtained through the abdomen and pelvis after administration of intravenous contrast. Auto Exposure Controls were utilized during the CT exam to meet ALARA standards for radiation dose reduction. INDICATION: Right-sided abdominal pain for 2 months. COMPARISON: No prior studies are available for comparison. The lung bases are clear. The liver is unremarkable. The gallbladder is surgically absent. No biliary ductal dilatation is identified. The pancreas and spleen are unremarkable. No adrenal mass is detected. Kidneys are without hydronephrosis. Aorta is non-aneurysmal. Small and large bowel loops are normal caliber. No obstruction is seen. There is a moderate amount of fluid within the colon and rectum, suggestive of diarrhea. No significant bowel wall thickening or evidence of pneumatosis or free air is seen. The bladder is unremarkable. Calcification in the pelvis likely represents phlebolith and appears to be outside the distal right ureter. Uterus is unremarkable. IMPRESSION: 1. There is moderate fluid in the distal colon and rectum suggesting diarrhea. No other significant abnormality in the abdomen or pelvis is detected. Dictated by: Dictated on workstation # [id number]
[2020-04-10] MEDS ORDERED: ONDA4TAB11 PO (12:43)
[2020-04-10] MEDS ORDERED: TRAM50TA3 PO (12:43)
[2020-04-10] MEDS ORDERED: KETOROLAC 30 MG/ML VIAL IVP ONE (12:45)
[2020-04-10 12:49] VITALS: BP 98/81
== END 2020-04-10 12:49 | disposition home or self-care (01) ==
LOC: EDUNIT# 10:10 → ER FS 10:11
DX: R10.11 Right upper quadrant pain (principal); R11.2 Nausea with vomiting, unspecified; F17.210 Nicotine dependence, cigarettes, uncomplicated; Z88.2 Allergy status to sulfonamides; Z88.1 Allergy status to other antibiotic agents; Z88.8 Allergy status to other drugs, medicaments and biological substances
CPT/HCPCS: 36415; 74177; 80053; 81000; 83690; 84703; 85007; 85027; 87077; 87088; 87186

== ENCOUNTER 2020-08-10 22:48 | Emergency (ER) | payer SELFPAY ==
[~2020-08-10] VITALS: Ht 157.4 cm; Wt 82.0 kg
[~2020-08-10 22:48] MED LIST changes: +CIPR500T4 PO; +ONDA4TAB11 PO; +TRAM50TA3 PO
--- NOTE | 2020-08-10 23:10 | ED General ---
General Chief Complaint: General Problems/Pain Stated Complaint: FEVER,SORE THROAT,BODY ACHES History of Present Illness Date Seen by Provider: Aug 10, 2020 Time Seen by Provider: 23:10 Initial Comments Patient presents emergency department for evaluation of multiple symptoms including cough congestion fevers chills arthralgias myalgias generalized malaise and fatigue that has been going on for the past 4 days. She says the cough was productive initially however now it is clear and colorless. Fevers h ave been unmeasured but she feels chills and sweats. She says she has no medical problems such as diabetes or immunosuppressive conditions but does take lithium. She says that when she coughs she feels a pressure sensation but no pain in between. She does smoke cigarettes but has no known asthma or COPD. She is in no obvious distress with slight tachycardia noted. Allergies and Home Medications Allergies Coded Allergies: prochlorperazine (Unverified Adverse Reaction, Unknown, 02/17/19) sulfamethoxazole (Unverified Adverse Reaction, Unknown, 02/17/19) trimethoprim (Unverified Adverse Reaction, Unknown, 02/17/19) Home Medications Azithromycin 250 Mg Tablet, 250 MG PO UD TAKE 2 TABLETS ON DAY ONE THEN TAKE 1 TABLET DAILY FOR FOUR MORE DAYS Prescribed by: RAD PLAZA on 02/17/191808 Benzonatate 100 Mg Capsule, 200 MG PO BID PRN for COUGH Prescribed by: RAD PLAZA on 02/17/191808 Ciprofloxacin HCl 500 Mg Tablet, 500 MG PO BID, (Reported) Ibuprofen 800 Mg Tablet, 800 MG PO Q8H PRN for PAIN Prescribed by: LIT SCOTT on 08/03/192199 Ondansetron 4 Mg Tab.rapdis, 4 MG PO Q6H Prescribed by: CINDY JONES on 04/10/20 1243 Tramadol HCl 50 Mg Tablet, 50 MG PO Q6H Prescribed by: CINDY JONES on 04/10/20 1243 Patient Home Medication List Home Medication List Reviewed: Yes Review of Systems Review of Systems Constitutional: chills, fever, malaise EENTM: nose congestion, throat pain Respiratory: cough, phlegm, wheezing Cardiovascular: chest pain Gastrointestinal: no symptoms reported Genitourinary: no symptoms reported Musculoskeletal: joint pain, muscle pain Skin: no symptoms reported Psychiatric/Neurological: No Symptoms Reported Past Whjbdcy-Lolmaj-Aiqddb Hx Patient Social History Type Used: Cigarettes 2nd Hand Smoke Exposure: Yes Recent Foreign Travel: No Contact w/Someone Who Travel: No Recent Hopitalizations: No Seasonal Allergies Seasonal Allergies: No Past Medical History Surgeries: Yes (C/S X 3) Appendectomy, Section, Gallbladder, Tonsillectomy Respiratory: No Cardiac: No Neurological: No Genitourinary: No Gastrointestinal: Yes (kidney stones) Musculoskeletal: No Endocrine: No HEENT: No Cancer: No Psychosocial: Yes (night terrors) Anxiety, PTSD, Depression Integumentary: No Blood Disorders: No Physical Exam Vital Signs Vital Signs - First Documented 08/10/20 23:06 Temp 36.7 Pulse 120 Resp 20 B/P (MAP) 128/77 (94) Pulse Ox 99 O2 Delivery Room Air Capillary Refill : Height, Weight, BMI Height: 5'2.00" Weight: 155lbs. oz. 70.681536ay; 30.00 BMI Method:Stated General Appearance: No Apparent Distress, WD/WN HEENT: TMs Normal, Other (pharyngeal erythema but airway patent with no swelling noted) Neck: Supple Respiratory: No Respiratory Distress, Wheezing Cardiovascular: No Edema, Tachycardia Gastrointestinal: Non Tender, Soft Neurologic/Psychiatric: Alert, Oriented x3 Skin: Warm/Dry Progress/Results/Core Measures Suspected Sepsis SIRS Temperature: Pulse: Respiratory Rate: Laboratory Tests 08/10/20 22:58: White Blood Count 11.9H Blood Pressure / Mean: Laboratory Tests 08/10/20 22:58: Creatinine 0.84, Platelet Count 386, Total Bilirubin 0.2 Results/Orders Lab Results Laboratory Tests Test 08/10/20 22:58 08/10/20 23:15 Range/Units White Blood Count 11.9 H 4.3-11.0 10^3/uL Red Blood Count 4.53 4.35-5.85 10^6/uL Hemoglobin 13.9 11.5-16.0 G/DL Hematocrit 42 35-52 % Mean Corpuscular Volume 92 80-99 FL Mean Corpuscular Hemoglobin 31 25-34 PG Mean Corpuscular Hemoglobin Concent 34 32-36 G/DL Red Cell Distribution Width 12.5 10.0-14.5 % Platelet Count 386 130-400 10^3/uL Mean Platelet Volume 9.7 7.4-10.4 FL Immature Granulocyte % (Auto) 0 % Neutrophils (%) (Auto) 63 42-75 % Lymphocytes (%) (Auto) 30 12-44 % Monocytes (%) (Auto) 5 0-12 % Eosinophils (%) (Auto) 2 0-10 % Basophils (%) (Auto) 1 0-10 % Neutrophils # (Auto) 7.5 1.8-7.8 X 10^3 Lymphocytes # (Auto) 3.5 1.0-4.0 X 10^3 Monocytes # (Auto) 0.5 0.0-1.0 X 10^3 Eosinophils # (Auto) 0.2 0.0-0.3 10^3/uL Basophils # (Auto) 0.1 0.0-0.1 10^3/uL Immature Granulocyte # (Auto) 0.0 0.0-0.1 10^3/uL Sodium Level 137 135-145 MMOL/L Potassium Level 3.5 L 3.6-5.0 MMOL/L Chloride Level 103 98-107 MMOL/L Carbon Dioxide Level 23 21-32 MMOL/L Anion Gap 11 5-14 MMOL/L Blood Urea Nitrogen 6 L 7-18 MG/DL Creatinine 0.84 0.60-1.30 MG/DL Estimat Glomerular Filtration Rate > 60 BUN/Creatinine Ratio 7 Glucose Level 131 H 70-105 MG/DL Calcium Level 10.3 H 8.5-10.1 MG/DL Corrected Calcium 9.9 8.5-10.1 MG/DL Total Bilirubin 0.2 0.1-1.0 MG/DL Aspartate Amino Transf (AST/SGOT) 16 5-34 U/L Alanine Aminotransferase (ALT/SGPT) 21 0-55 U/L Alkaline Phosphatase 76 40-136 U/L Total Protein 6.9 6.4-8.2 GM/DL Albumin 4.5 3.2-4.5 GM/DL Group A Streptococcus Screen NEGATIVE NEGATIVE Micro Results Microbiology 08/10/20 Influenza Types A,B Antigen (JESSI) - Final, Complete My Orders Orders - MIKE HEWITT DO Cbc With Automated Diff (08/10/20 23:13) Comprehensive Metabolic Panel (08/10/20 23:13) Rapid Strep A Screen (08/10/20 23:13) Influenza A And B Antigens (08/10/20 23:13) Iv/Invasive Line Insertion .IV start (08/10/20 23:13) Chest 1 View Ap/Pa Only (08/10/20 23:13) Coronavirus Sars-Cov-2 So 2018 (08/10/20 23:13) Ondansetron Injection (Zofran Injectio (08/10/20 23:15) Hydrocodone/Apap 5/325 Tablet (Lortab 5 (08/10/20 23:15) Ns Iv 1000 Ml (Sodium Chloride 0.9%) (08/10/20 23:15) Ketorolac Injection (Toradol Injection) (08/10/20 23:15) Hydrocodone/Apap 5/325 Tablet (Lortab 5 (08/10/20 23:28) Ns Iv 1000 Ml (Sodium Chloride 0.9%) (08/10/20 23:25) Ketorolac Injection (Toradol Injection) (08/10/20 23:25) Medications Given in ED Current Medications Medications Dose Ordered Sig/Rosana Route Start Time Stop Time Status Last Admin Dose Admin Acetaminophen/ Hydrocodone Bitart 2 tab ONCE ONCE PO 08/10/20 23:15 08/11/20 00:14 DC 08/10/20 23:29 2 TAB Ketorolac Tromethamine 15 mg ONCE ONCE IVP 08/10/20 23:15 08/11/20 00:14 DC 08/10/20 23:29 15 MG Vital Signs/I&O 08/10/20 23:06 Temp 36.7 Pulse 120 Resp 20 B/P (MAP) 128/77 (94) Pulse Ox 99 O2 Delivery Room Air Capillary Refill : Progress Note : Progress Note Patient with symptoms of likely upper respiratory tract infection. I will check strep flu COVID basic labs treat symptoms and reassess. Patient has negative workup except for mild leukocytosis. Her chest x-ray does not show an obvious infiltrate however shows diffuse airway inflammation likely consistent with a bronchitis. Patient is inquiring about an antibiotic and she has a prolonged QT on her EKG some going to try and avoid agents that could prolong her QT. I told her that is very important that she stop smoking and alcohol from or anything else but I can go ahead and start her on a course of Augmentin and prescribe her an inhaler to help with the wheezing and prescribe her prednisone and Tussionex as well. I told her to follow with her primary care provider within 2-3 days to ensure improvement and come back to the ED sooner with worsening pain shortness of breath or other general concerns. Patient aware and agreeable with plan and verbalized understanding of the above instructions. Departure Impression Primary Impression: Upper respiratory infection Qualified Codes: J06.9 - Acute upper respiratory infection, unspecified Additional Impressions: Leukocytosis Wheezing Disposition: HOME, SELF-CARE Condition: Stable Departure-Patient Inst. Referrals: NO,LOCAL PHYSICIAN (PCP/Family) Primary Care Physician Patient Instructions: Acute Bronchitis, Adult (DC) Add. Discharge Instructions: Drink plenty of fluids. Take tylenol and ibuprofen for pain/fever. Follow with pcp later this week and come back with any new or worsening symptoms. Thank you! All discharge instructions reviewed with patient and/or family. Voiced understanding. Scripts Hydrocodone/Chlorphen P-Stirex (Hydrocodone-Chlorphen ER Susp) 473 Ml Gris.er.12h 473 ML PO BID for 7 Days, ML Prov: MIKE HEWITT DO 08/11/20 Albuterol Sulfate (PROAIR HFA) 1 Puff Puff 2 PUFF IH Q4H, #1 INHALER 1 PUFF = 90 MCG Prov: MIKE HEWITT DO 08/11/20 Prednisone (Prednisone) 20 Mg Tab 40 MG PO DAILY for 4 Days, #8 TAB 0 Refills Prov: MIKE HEWITT DO 08/11/20 Amoxicillin/Potassium Clav (Augmentin 875-125 Tablet) 1 Each Tablet 1 EACH PO BID, #14 TAB 0 Refills Prov: MIKE HEWITT DO 08/11/20 MIKE HEWITT DO Aug 10, 2020 23:10
[2020-08-10] MEDS ORDERED: NS IV 1000 ML 1,000 ML IV SCH (23:15)
[2020-08-10] MEDS ORDERED: HYDROcodone/APAP 5 MG/325 MG (LORTAB) TAB PO ONE (23:15)
[2020-08-10] MEDS ORDERED: KETOROLAC 30 MG/ML VIAL IVP ONE (23:15)
[2020-08-10] MEDS ORDERED: ONDANSETRON 4 MG/2 ML (SDV) Z0FRAN IVP ONE (23:15)
[2020-08-10 23:24] LABS: HEMATOCRIT 42 % (35-52); HEMOGLOBIN 13.9 G/DL (11.5-16.0); MEAN CORPUSCULAR HEMOGLOBIN 31 PG (25-34); WHITE BLOOD COUNT 11.9 10^3/uL (4.3-11.0)
[2020-08-10 23:25] LABS: BASOPHILS % (AUTO) 1 % (0-10); EOSINOPHILS % (AUTO) 2 % (0-10); LYMPHOCYTES % (AUTO) 30 % (12-44); MEAN CORPUSCULAR HGB CONC 34 G/DL (32-36); MEAN CORPUSCULAR VOLUME 92 FL (80-99); MEAN PLATELET VOLUME 9.7 FL (7.4-10.4); MONOCYTES % (AUTO) 5 % (0-12); NEUTROPHILS % (AUTO) 63 % (42-75); PLATELET COUNT 386 10^3/uL (130-400)
[2020-08-10] MEDS ORDERED: KETOROLAC 30 MG/ML VIAL ONE (23:25)
[2020-08-10] MEDS ORDERED: NS IV 1000 ML 1,000 ML ONE (23:25)
[2020-08-10 23:26] LABS: BASOPHILS # (AUTO) 0.1 10^3/uL (0.0-0.1); EOSINOPHILS # (AUTO) 0.2 10^3/uL (0.0-0.3); LYMPHOCYTES # (AUTO) 3.5 X 10^3 (1.0-4.0); MONOCYTES # (AUTO) 0.5 X 10^3 (0.0-1.0); NEUTROPHILS # (AUTO) 7.5 X 10^3 (1.8-7.8)
[2020-08-10] MEDS ORDERED: HYDROcodone/APAP 5 MG/325 MG (LORTAB) TAB ONE (23:28)
[2020-08-10 23:36] LABS: BUN/CREATININE RATIO 7; CARBON DIOXIDE 23 MMOL/L (21-32); CHLORIDE 103 MMOL/L (98-107); CREATININE SERUM 0.84 MG/DL (0.60-1.30); GFR ESTIMATED > 60; POTASSIUM 3.5 MMOL/L (3.6-5.0); SODIUM 137 MMOL/L (135-145)
[2020-08-10 23:37] LABS: ALANINE AMINOTRANSFERASE 21 U/L (0-55); ALBUMIN 4.5 GM/DL (3.2-4.5); ALKALINE PHOSPHATASE 76 U/L (40-136); BILIRUBIN,TOTAL 0.2 MG/DL (0.1-1.0); CALCIUM 10.3 MG/DL (8.5-10.1); GLUCOSE 131 MG/DL (70-105); TOTAL PROTEIN 6.9 GM/DL (6.4-8.2)
[2020-08-11] MEDS ORDERED: AMOX-358 PO (00:23)
[2020-08-11] MEDS ORDERED: RT-ALBUINH IH (00:23)
[2020-08-11] MEDS ORDERED: PRD20T PO (00:23)
[2020-08-11] MEDS ORDERED: HYDR473S61 PO (00:23)
[2020-08-11] MEDS ORDERED: predniSONE 20 MG TAB PO ONE (00:30)
[2020-08-11 00:31] VITALS: BP 126/82
--- NOTE | 2020-08-11 06:36 | Diagnostic Imaging Report ---
INDICATION: Cough 4 days, patient's having fever and chills, sore throat and chest pressure. FINDINGS: Portable view of the chest demonstrate the lungs to be clear. The heart, mediastinum and pulmonary vascularity and visualized bony thorax are normal. IMPRESSION: Normal chest. Dictated by: Dictated on workstation # [id number]
== END 2020-08-11 00:31 | disposition home or self-care (01) ==
LOC: EDUNIT# 22:48 → ER FS 22:50
DX: J06.9 Acute upper respiratory infection, unspecified (principal); D72.829 Elevated white blood cell count, unspecified; R06.2 Wheezing; Z77.22 Contact with and (suspected) exposure to environmental tobacco smoke (acute) (chronic); Z88.2 Allergy status to sulfonamides; Z88.1 Allergy status to other antibiotic agents; Z88.8 Allergy status to other drugs, medicaments and biological substances; Z20.828 Contact with and (suspected) exposure to other viral communicable diseases
CPT/HCPCS: 36415; 71045; 80053; 85025; 87430; 87804 ×2; 93005; 96361; 96374; 99284; U0002; 87635

== ENCOUNTER 2021-01-18 12:50 | Emergency (ER) | payer SELFPAY ==
[~2021-01-18] VITALS: Ht 157 cm; Wt 79.7 kg
[~2021-01-18 12:50] MED LIST changes: +AMOX-358 PO; -CIPR500T4 PO; +CIPR500T5 PO; +HYDR473S61 PO; +PRD20T PO; +RT-ALBUINH IH
[2021-01-18] MEDS ORDERED: NS IV 1000 ML 1,000 ML IV STA (13:06)
[2021-01-18] MEDS ORDERED: KETOROLAC 30 MG/ML VIAL IVP STA (13:06)
--- NOTE | 2021-01-18 13:12 | ED Back Pain ---
General Chief Complaint: Back Problems Stated Complaint: RT LWR BACK PAIN Source of Information: Patient History of Present Illness Date Seen by Provider: Jan 18, 2021 Time Seen by Provider: 12:51 Initial Comments 40-year-old female presenting with right flank pain x3 days. She states that the pain radiates around her flank into her groin. She denies any burning or pain with urination. She has no fever or chills. She denies any nausea or vomiting. She states this feels somewhat similar to when she has had kidney stones in the past. She tried taking a Uristat and ibuprofen at 6 AM but it was not helping. She finally came into the ED since the pain was continuing and she was not sure if it was a kidney stone or what was causing the pain. She rates the pain 8 out of 10. She cannot find a comfortable position. She denies any trauma or injury. She states that she is currently on her menstrual cycle. Allergies and Home Medications Allergies Coded Allergies: prochlorperazine (Unverified Adverse Reaction, Unknown, 02/17/19) sulfamethoxazole (Unverified Adverse Reaction, Unknown, 02/17/19) trimethoprim (Unverified Adverse Reaction, Unknown, 02/17/19) Home Medications Albuterol Sulfate 1 Puff Puff, 2 PUFF IH Q4H 1 PUFF = 90 MCG Prescribed by: MIKE HEWITT on 08/11/2022 Amoxicillin/Potassium Clav 1 Each Tablet, 1 EACH PO BID Prescribed by: MIKE HEWITT on 08/11/2022 Azithromycin 250 Mg Tablet, 250 MG PO UD TAKE 2 TABLETS ON DAY ONE THEN TAKE 1 TABLET DAILY FOR FOUR MORE DAYS Prescribed by: RAD PLAZA on 02/17/191808 Baclofen 10 Mg Tablet, 10 MG PO BID PRN for flank pain/spasm Prescribed by: LIT SCOTT on 01/18/21 1410 Benzonatate 100 Mg Capsule, 200 MG PO BID PRN for COUGH Prescribed by: RAD PLAZA on 02/17/191808 Ciprofloxacin HCl 500 Mg Tablet, 500 MG PO BID, (Reported) Hydrocodone/Chlorphen P-Stirex 473 Ml Gris.er.12h, 473 ML PO BID Prescribed by: MIKE HEWITT on 08/11/2022 Ibuprofen 800 Mg Tablet, 800 MG PO Q8H PRN for PAIN Prescribed by: LIT SCOTT on 08/03/19 2200 Ibuprofen 800 Mg Tablet, 800 MG PO Q8H PRN for PAIN Prescribed by: LIT SCOTT on 01/18/21 1410 Ondansetron 4 Mg Tab.rapdis, 4 MG PO Q6H Prescribed by: CINDY JONES on 04/10/20 1243 Prednisone 20 Mg Tab, 40 MG PO DAILY Prescribed by: MIKE HEWITT on 08/11/20 0023 Tramadol HCl 50 Mg Tablet, 50 MG PO Q6H Prescribed by: CINDY JONES on 04/10/20 1243 Tramadol HCl 50 Mg Tablet, 50 MG PO Q6H PRN for PAIN-SEVERE (8-10) Prescribed by: LIT SCOTT on 01/18/21 1410 Patient Home Medication List Home Medication List Reviewed: Yes Review of Systems Constitutional: No chills, No fever EENTM: no symptoms reported Respiratory: no symptoms reported Cardiovascular: no symptoms reported Gastrointestinal: see HPI Genitourinary: see HPI Musculoskeletal: see HPI Skin: No rash Psychiatric/Neurological: Denies Headache, Denies Numbness, Denies Paresthesia Past Sbsgtkn-Yksuyl-Zhfbga Hx Past Med/Social Hx: Reviewed Nursing Past Med/Soc Hx Patient Social History Alcohol Use: Denies Use Smoking Status: Current Everyday Smoker Type Used: Cigarettes 2nd Hand Smoke Exposure: Yes Recent Hopitalizations: No Seasonal Allergies Seasonal Allergies: No Past Medical History Surgeries: Yes (C/S X 3) Appendectomy, Section, Gallbladder, Tonsillectomy Respiratory: No Cardiac: No Neurological: No Genitourinary: No Gastrointestinal: Yes (kidney stones) Musculoskeletal: No Endocrine: No HEENT: No Cancer: No Psychosocial: Yes (night terrors) Anxiety, PTSD, Depression Integumentary: No Blood Disorders: No Physical Exam Vital Signs Vital Signs - First Documented 01/18/21 13:08 Temp 36.0 Pulse 89 Resp 18 B/P (MAP) 117/78 (91) Pulse Ox 100 O2 Delivery Room Air Capillary Refill : Height, Weight, BMI Height: 5'2.00" Weight: 155lbs. oz. 70.380608km; 33.00 BMI Method:Stated General Appearance: No Apparent Distress, WD/WN HEENT: PERRL/EOMI Neck: Non Tender, Supple Cardiovascular: Regular Rate, Rhythm, Normal Peripheral Pulses Respiratory: Chest Non Tender, Lungs Clear, Normal Breath Sounds Gastrointestinal: Normal Bowel Sounds, No Pulsatile Mass, Soft; No Distended, No Guarding, No Rebound; Tenderness (Right flank wrapping around to the right lower quadrant) Back: No Vertebral Tenderness, CVA Tenderness (R) Extremity: Normal Capillary Refill, No Pedal Edema Neurologic/Psychiatric: Alert, Oriented x3, No Motor/Sensory Deficits, plate grainer II- XII Norm as Tested Skin: Normal Color, Warm/Dry Progress/Results/Core Measures Results/Orders Lab Results Laboratory Tests Test 01/18/21 12:55 01/18/21 13:10 Range/Units Urine Color STRAW Urine Clarity SL CLOUDY Urine pH 6.5 5-9 Urine Specific [place] 1.020 1.016-1.022 Urine Protein NEGATIVE NEGATIVE Urine Glucose (UA) TRACE H NEGATIVE Urine Ketones NEGATIVE NEGATIVE Urine Nitrite POSITIVE H NEGATIVE Urine Bilirubin NEGATIVE NEGATIVE Urine Urobilinogen 1.0 < = 1.0 MG/DL Urine Leukocyte Esterase TRACE H NEGATIVE Urine RBC (Auto) TRACE H NEGATIVE Urine RBC 2-5 H /HPF Urine WBC 0-2 /HPF Urine Squamous Epithelial Cells 5-10 /HPF Urine Crystals PRESENT H /LPF Urine Amorphous Sediment FEW JUNIOR URATES H /LPF Urine Bacteria FEW H /HPF Urine Casts NONE /LPF Urine Mucus SMALL H /LPF Urine Culture Indicated YES White Blood Count 8.8 4.3-11.0 10^3/uL Red Blood Count 4.74 4.35-5.85 10^6/uL Hemoglobin 14.2 11.5-16.0 G/DL Hematocrit 41 35-52 % Mean Corpuscular Volume 87 80-99 FL Mean Corpuscular Hemoglobin 30 25-34 PG Mean Corpuscular Hemoglobin Concent 34 32-36 G/DL Red Cell Distribution Width 13.2 10.0-14.5 % Platelet Count 404 H 130-400 10^3/uL Mean Platelet Volume 10.4 7.4-10.4 FL Immature Granulocyte % (Auto) 0 % Neutrophils (%) (Auto) 60 42-75 % Lymphocytes (%) (Auto) 32 12-44 % Monocytes (%) (Auto) 5 0-12 % Eosinophils (%) (Auto) 2 0-10 % Basophils (%) (Auto) 1 0-10 % Neutrophils # (Auto) 5.3 1.8-7.8 X 10^3 Lymphocytes # (Auto) 2.8 1.0-4.0 X 10^3 Monocytes # (Auto) 0.5 0.0-1.0 X 10^3 Eosinophils # (Auto) 0.1 0.0-0.3 10^3/uL Basophils # (Auto) 0.1 0.0-0.1 10^3/uL Immature Granulocyte # (Auto) 0.0 0.0-0.1 10^3/uL Sodium Level 139 135-145 MMOL/L Potassium Level 4.3 3.6-5.0 MMOL/L Chloride Level 105 98-107 MMOL/L Carbon Dioxide Level 24 21-32 MMOL/L Anion Gap 10 5-14 MMOL/L Blood Urea Nitrogen 8 7-18 MG/DL Creatinine 0.73 0.60-1.30 MG/DL Estimat Glomerular Filtration Rate > 60 BUN/Creatinine Ratio 11 Glucose Level 95 70-105 MG/DL Calcium Level 10.3 H 8.5-10.1 MG/DL Corrected Calcium 10.0 8.5-10.1 MG/DL Total Bilirubin 0.2 0.1-1.0 MG/DL Aspartate Amino Transf (AST/SGOT) 17 5-34 U/L Alanine Aminotransferase (ALT/SGPT) 18 0-55 U/L Alkaline Phosphatase 85 40-136 U/L Total Protein 7.0 6.4-8.2 GM/DL Albumin 4.4 3.2-4.5 GM/DL My Orders Orders - LIT SCOTT MD Ua Culture If Indicated (01/18/21 12:53) Urine Bedside (01/18/21 12:53) Comprehensive Metabolic Panel (01/18/21 13:06) Ed Iv/Invasive Line Start (01/18/21 13:06) Cbc With Automated Diff (01/18/21 13:06) Ct Abdomen/Pelvis Wo (01/18/21 13:06) Ns Iv 1000 Ml (Sodium Chloride 0.9%) (01/18/21 13:06) Ketorolac Injection (Toradol Injection) (01/18/21 13:06) Urine Culture (01/18/21 12:55) Orphenadrine Inj (Ed Only) (Norflex Inje (01/18/21 14:04) Fentanyl Inj (Sublimaze Injection) (01/18/21 14:04) Vital Signs/I&O 01/18/21 01/18/21 13:08 14:32 Temp 36.0 36.0 Pulse 89 89 Resp 18 18 B/P (MAP) 117/78 (91) 117/78 (91) Pulse Ox 100 100 O2 Delivery Room Air Progress Progress Note #1: Progress Note Check basic labs and urinalysis. Give IV Toradol to help with pain. IV fluids for hydration. Obtain a CT scan without contrast to evaluate the right flank pain x3 days. Differential diagnosis would include kidney stone, pyelonephritis, UTI, diverticulitis, colitis, ovarian cyst, musculoskeletal pain. Progress Note #2: Progress Note Patient only had mild improvement of pain with treatment in the ED. Her and CT did not demonstrate any acute significant abnormality to account for her complai nt of pain. Advised that there could be a small stone that was not caught on images with the CT however this all could just be more musculoskeletal in nature. Will add on a dose of pain medicine and muscle relaxer here in the ED. Discharge on baclofen for muscle relaxer, tramadol for pain, ibuprofen. She states that she has an appointment with MICHAELLE HOBBS on so we will have her follow-up on symptoms at that time. Diagnostic Imaging Diagonstic Imaging: CT Plain Films/CT/US/NM/MRI: abdomen, pelvis Comments NAME: BEAU GUZMAN [facility] REC#: [id number] PT STATUS: REG ER : 1980 PHYSICIAN: LIT SCOTT MD ADMIT DATE: 01/18/21/ER FS Draft Date of Exam:01/18/21 CT ABDOMEN/PELVIS WO PROCEDURE: CT abdomen and pelvis without contrast. TECHNIQUE: Multiple contiguous axial images were obtained through the abdomen and pelvis without the use of intravenous contrast. Auto Exposure Controls were utilized during the CT exam to meet ALARA standards for radiation dose reduction. INDICATION: Right flank pain. Patient has history of kidney stones. COMPARISON: Correlation is made with prior CT from 04/10/2020. FINDINGS: Lung bases are clear. Liver is unremarkable. Gallbladder is surgically absent. There is no biliary ductal dilatation. Pancreas and spleen are unremarkable. No adrenal mass is detected. No definite renal calculi or hydronephrosis are identified. No ureteral or bladder calculi are seen. A right pelvic calcification is present and appears to represent a phlebolith. Aorta is nonaneurysmal. Small and large bowel loops are normal in caliber. There is no obstruction. The bladder and uterus are unremarkable. There is no free fluid or fluid collection. No inflammatory changes are seen. IMPRESSION: Unremarkable noncontrast CT abdomen and pelvis. No acute abnormality is detected. Dictated on workstation # [id number] Dict: 01/18/21 1344 Trans: 01/18/21 1351 [id number] Interpreted by: DOROTHY LANDA MD Electronically signed by: Departure Impression Primary Impression: Acute right flank pain Disposition: HOME, SELF-CARE Condition: Stable Departure-Patient Inst. Decision time for Depature: 14:06 Referrals: LESLIE HOBBS (PCP) Primary Care Physician [facility] (Family) Primary Care Physician Patient Instructions: Flank Pain (DC) Add. Discharge Instructions: Continue on medicine as needed for pain and spasm in your side. Make sure you are drinking plenty of water and staying well hydrated. If this is a kidney stone it is very small since it was not seen on the CT scan. Keep your appointment on with Leslie Hobbs for follow up and check with her if having continued problems or more concerns All discharge instructions reviewed with patient and/or family. Voiced understanding. Scripts Tramadol HCl (Tramadol HCl) 50 Mg Tablet 50 MG PO Q6H PRN for PAIN-SEVERE (8-10) for 3 Days, #12 TAB 0 Refills Prov: LIT SCOTT MD 01/18/21 Ibuprofen (Ibuprofen) 800 Mg Tablet 800 MG PO Q8H PRN for PAIN for 10 Days, #30 TAB 0 Refills Prov: LIT SCOTT MD 01/18/21 Baclofen (Baclofen) 10 Mg Tablet 10 MG PO BID PRN for flank pain/spasm for 7 Days, #14 TAB 0 Refills Prov: LIT SCOTT MD 01/18/21 LIT SCOTT MD Jan 18, 2021 13:12
[2021-01-18 13:15] LABS: BILIRUBIN,URINE NEGATIVE (NEGATIVE); CLARITY,URINE SL CLOUDY; COLOR,URINE STRAW; GLUCOSE, URINE (UA) TRACE (NEGATIVE); KETONES,URINE NEGATIVE (NEGATIVE); LEUKOCYTE ESTERASE ,URINE TRACE (NEGATIVE); NITRITE,URINE POSITIVE (NEGATIVE); PH,URINE 6.5 (5-9); PROTEIN,URINE NEGATIVE (NEGATIVE)
[2021-01-18 13:16] LABS: AMORPHOUS SEDIMENT,UR FEW AMOR URATES /LPF; BACTERIA,URINE FEW /HPF; WBC,URINE 0-2 /HPF
[2021-01-18 13:23] LABS: BASOPHILS # (AUTO) 0.1 10^3/uL (0.0-0.1); BASOPHILS % (AUTO) 1 % (0-10); EOSINOPHILS # (AUTO) 0.1 10^3/uL (0.0-0.3); EOSINOPHILS % (AUTO) 2 % (0-10); HEMATOCRIT 41 % (35-52); HEMOGLOBIN 14.2 G/DL (11.5-16.0); LYMPHOCYTES # (AUTO) 2.8 X 10^3 (1.0-4.0); LYMPHOCYTES % (AUTO) 32 % (12-44); MEAN CORPUSCULAR HEMOGLOBIN 30 PG (25-34); MEAN CORPUSCULAR HGB CONC 34 G/DL (32-36); MEAN CORPUSCULAR VOLUME 87 FL (80-99); MEAN PLATELET VOLUME 10.4 FL (7.4-10.4); MONOCYTES # (AUTO) 0.5 X 10^3 (0.0-1.0); MONOCYTES % (AUTO) 5 % (0-12); NEUTROPHILS # (AUTO) 5.3 X 10^3 (1.8-7.8); NEUTROPHILS % (AUTO) 60 % (42-75); PLATELET COUNT 404 10^3/uL (130-400); WHITE BLOOD COUNT 8.8 10^3/uL (4.3-11.0)
--- NOTE | 2021-01-18 13:51 | Diagnostic Imaging Report ---
PROCEDURE: CT abdomen and pelvis without contrast. TECHNIQUE: Multiple contiguous axial images were obtained through the abdomen and pelvis without the use of intravenous contrast. Auto Exposure Controls were utilized during the CT exam to meet ALARA standards for radiation dose reduction. INDICATION: Right flank pain. Patient has history of kidney stones. COMPARISON: Correlation is made with prior CT from 04/10/2020. FINDINGS: Lung bases are clear. Liver is unremarkable. Gallbladder is surgically absent. There is no biliary ductal dilatation. Pancreas and spleen are unremarkable. No adrenal mass is detected. No definite renal calculi or hydronephrosis are identified. No ureteral or bladder calculi are seen. A right pelvic calcification is present and appears to represent a phlebolith. Aorta is nonaneurysmal. Small and large bowel loops are normal in caliber. There is no obstruction. The bladder and uterus are unremarkable. There is no free fluid or fluid collection. No inflammatory changes are seen. IMPRESSION: Unremarkable noncontrast CT abdomen and pelvis. No acute abnormality is detected. Dictated by: Dictated on workstation # [id number]
[2021-01-18 13:52] LABS: BUN/CREATININE RATIO 11; CARBON DIOXIDE 24 MMOL/L (21-32); CHLORIDE 105 MMOL/L (98-107); CREATININE SERUM 0.73 MG/DL (0.60-1.30); GFR ESTIMATED > 60; POTASSIUM 4.3 MMOL/L (3.6-5.0); SODIUM 139 MMOL/L (135-145)
[2021-01-18 13:53] LABS: ALANINE AMINOTRANSFERASE 18 U/L (0-55); ALBUMIN 4.4 GM/DL (3.2-4.5); ALKALINE PHOSPHATASE 85 U/L (40-136); BILIRUBIN,TOTAL 0.2 MG/DL (0.1-1.0); CALCIUM 10.3 MG/DL (8.5-10.1); GLUCOSE 95 MG/DL (70-105)
[2021-01-18] MEDS ORDERED: fentaNYL INJ 100 MCG/2 ML AMP IVP STA (14:04)
[2021-01-18] MEDS ORDERED: ORPHENADRINE 60 MG/2 ML (NORFLEX) AMP (ED ONLY) IVP STA (14:04)
[2021-01-18] MEDS ORDERED: TRM50T PO (14:10)
[2021-01-18] MEDS ORDERED: BACL10TA PO (14:10)
[2021-01-18] MEDS ORDERED: IBUP-1780 PO (14:10)
[2021-01-18 14:32] VITALS: BP 117/78
== END 2021-01-18 14:30 | disposition home or self-care (01) ==
LOC: EDUNIT# 12:50 → ER FS 12:52
DX: R10.31 Right lower quadrant pain (principal); F17.210 Nicotine dependence, cigarettes, uncomplicated; Z88.1 Allergy status to other antibiotic agents; Z88.2 Allergy status to sulfonamides; Z88.8 Allergy status to other drugs, medicaments and biological substances; Z79.52 Long term (current) use of systemic steroids
CPT/HCPCS: 36415; 74176; 80053; 81000; 84703; 85025; 87088

== ENCOUNTER → 2021-05-23 | Outpatient (CLI) | payer SELFPAY ==
[~2021-05-23] MED LIST changes: +BACL10TA PO; +TRM50T PO
--- NOTE | 2021-05-23 10:34 | Diagnostic Imaging Report ---
Clinical indication: Patient with chronic migraines for years, worsening. Patient has multiple injuries. Exam: Axial CT scan of the brain without IV contrast with coronal and sagittal reformatted images. Auto Exposure Controls were utilized during the CT exam to meet ALARA standards for radiation dose reduction. Comparison: None. Findings: There is no evidence of acute cerebral infarct, intracranial hemorrhage, or gross mass effect. The brain parenchymal volume appears appropriate for patient's age. There is normal renner-white matter distinction. There is no significant midline shift or herniation. There is no evidence of hydrocephalus. The basal cisterns are unremarkable. The skull, extracranial soft tissue, and orbits are unremarkable. The paranasal sinuses are unremarkable. Temporal bones show no significant abnormality. Impression: Unremarkable CT scan of the brain. Dictated by: Dictated on workstation # [id number]
== END ==
LOC: RAD FS 08:48
PROVIDERS: ATTEND Nurse Practitioner
DX: G43.011 Migraine without aura, intractable, with status migrainosus (principal); Z87.828 Personal history of other (healed) physical injury and trauma; Z82.49 Family history of ischemic heart disease and other diseases of the circulatory system
CPT/HCPCS: 70450

== ENCOUNTER 2022-02-13 16:24 | Emergency (ER) | payer SELFPAY ==
[~2022-02-13] VITALS: Ht 157.4 cm; Wt 52.7 kg
[~2022-02-13 16:24] MED LIST changes: -FLUO20CA46; +FLUO20CA48
[2022-02-13] MEDS ORDERED: fentaNYL INJ 100 MCG/2 ML AMP IVP STA (16:29)
--- NOTE | 2022-02-13 16:29 | ED Upper Extremity ---
General Stated Complaint: R HAND PAIN History of Present Illness Date Seen by Provider: Feb 13, 2022 Time Seen by Provider: 16:28 Initial Comments 41-year-old female presents with injury to the medial aspect of her right hand along the fifth knuckle joint. Patient reports that she tripped over her dog and fell and she is not sure exactly what happens but thinks maybe she excellently punched a wall with her hand. She has some obvious swelling and mild deformity around the the area of injury. She has a small superficial lac eration and abrasion. She reports her last tetanus was approximately 8 years ago. Patient denies any other injury. Patient has significant pain with any range of motion Allergies and Home Medications Allergies Coded Allergies: prochlorperazine (Unverified Adverse Reaction, Unknown, 02/17/19) sulfamethoxazole (Unverified Adverse Reaction, Unknown, 02/17/19) trimethoprim (Unverified Adverse Reaction, Unknown, 02/17/19) Patient Home Medication List Home Medication List Reviewed: Yes Albuterol Sulfate (Proair Hfa) 1 Puff Puff, 2 PUFF IH Q4H Prescribed by: MIKE HEWITT on 08/11/20 002 Amoxicillin/Potassium Clav (Augmentin 875-125 Tablet) 1 Each Tablet, 1 EACH PO BID Prescribed by: MIKE HEWITT on 08/11/2022 Azithromycin (Azithromycin) 250 Mg Tablet, 250 MG PO UD Prescribed by: RAD PLAZA on 02/17/191808 Baclofen (Baclofen) 10 Mg Tablet, 10 MG PO BID PRN for flank pain/spasm Prescribed by: LIT SCOTT on 01/18/21 1410 Benzonatate (Tessalon Perles) 100 Mg Capsule, 200 MG PO BID PRN for COUGH Prescribed by: RAD PLAZA on 02/17/19 180 Cephalexin (Cephalexin) 500 Mg Tablet, 500 MG PO QID Prescribed by: JENARO GALAVIZ on 02/13/22 182 Ciprofloxacin HCl (Ciprofloxacin HCl) 500 Mg Tablet, 500 MG PO BID, (Reported) Entered as Reported by: MARQUISE MURO on 04/14/20 1409 Clonazepam (Clonazepam) 0.5 Mg Tablet, (Reported) Entered as Reported by: MARQUISE MURO on 02/17/19 1736 Fluoxetine HCl (Fluoxetine HCl) 20 Mg Capsule, (Reported) Entered as Reported by: MARQUISE MURO on 02/17/19 1736 Hydrocodone/Acetaminophen (Hydrocodone-Acetamin 5-325 mg) 1 Each Tablet, 1 TAB PO Q6H PRN for PAIN-MODERATE (5-7) Prescribed by: JENARO GALAVIZ on 02/13/22 1820 Hydrocodone/Chlorphen P-Stirex (Hydrocodone-Chlorphen ER Susp) 473 Ml Gris.er.12h, 473 ML PO BID Prescribed by: MIKE HEWITT on 08/11/20 002 Ibuprofen (Ibuprofen) 800 Mg Tablet, 800 MG PO Q8H PRN for PAIN Prescribed by: LIT SCOTT on 08/03/19 2200 Ibuprofen (Ibuprofen) 800 Mg Tablet, 800 MG PO Q8H PRN for PAIN Prescribed by: LIT SCOTT on 01/18/21 141 [place] Carbonate ([place] Carbonate) 150 Mg Capsule, (Reported) Entered as Reported by: MARQUISE MURO on 02/17/19 173 Ondansetron (Ondansetron Odt) 4 Mg Tab.rapdis, 4 MG PO Q6H Prescribed by: CINDY JONES on 04/10/20 124 Prazosin HCl (Prazosin HCl) 2 Mg Capsule, 2 MG PO, (Reported) Entered as Reported by: MARQUISE MURO on 02/17/19 173 Prednisone (Prednisone) 20 Mg Tab, 40 MG PO DAILY Prescribed by: MIKE HEWITT on 08/11/2022 Tramadol HCl (Tramadol HCl) 50 Mg Tablet, 50 MG PO Q6H Prescribed by: CINDY JONES on 04/10/20 124 Tramadol HCl (Tramadol HCl) 50 Mg Tablet, 50 MG PO Q6H PRN for PAIN-SEVERE (8- 10) Prescribed by: LIT SCOTT on 01/18/21 1410 Review of Systems Constitutional: No chills, No fever EENTM: no symptoms reported Respiratory: no symptoms reported Cardiovascular: no symptoms reported Gastrointestinal: no symptoms reported Genitourinary: no symptoms reported Musculoskeletal: see HPI Skin: see HPI Psychiatric/Neurological: No Symptoms Reported Past Bwprrmm-Zrbqlm-Owwfsh Hx Seasonal Allergies Seasonal Allergies: No Past Medical History Surgeries: Yes (C/S X 3) Appendectomy, Section, Gallbladder, Tonsillectomy Respiratory: No Cardiac: No Neurological: No Genitourinary: No Gastrointestinal: Yes (kidney stones) Musculoskeletal: No Endocrine: No HEENT: No Cancer: No Psychosocial: Yes (night terrors) Anxiety, PTSD, Depression Integumentary: No Blood Disorders: No Physical Exam Vital Signs Vital Signs - First Documented 02/13/22 16:26 Temp 36.6 Pulse 116 Resp 18 B/P (MAP) 111/73 (86) Capillary Refill : Height, Weight, BMI Height: 5'2.00" Weight: 155lbs. oz. 70.281428ap; 32.00 BMI Method:Stated General Appearance: mild distress Neck: full range of motion, supple Cardiovascular: normal peripheral pulses, regular rate, rhythm Respiratory: lungs clear, normal breath sounds Gastrointestinal: non tender, soft Shoulder: normal inspection Elbow/Forearm: normal inspection Wrist: Yes normal inspection Hand: deformity (Right fifth meta carpal joint), limited ROM, swelling Neurologic/Psychiatric: alert, normal mood/affect, oriented x 3 Skin: other (Small abrasion dorsal aspect of right knuckle/hand) Progress/Results/Core Measures Results/Orders My Orders Orders - JENARO GALAVIZ L DO Hand 3 View Right (02/13/22 16:29) Dipht,Pertuss(Acell),Tet Adult (Boostrix (02/13/22 16:30) Fentanyl Inj (Sublimaze Injection) (02/13/22 16:29) Hydrocodone/Apap 5/325 Tablet (Lortab 5 (02/13/22 18:15) Rocephin 1000mg Im (02/13/22 18:30) Lidocaine 1% Inj 20 Ml (Xylocaine 1% Inj (02/13/22 18:30) Vital Signs/I&O 02/13/22 16:26 Temp 36.6 Pulse 116 Resp 18 B/P (MAP) 111/73 (86) Progress Progress Note : Progress Note Patient with an open fracture left fifth metacarpal. Discussed with Dr. Plasencia. Dr. Aguilera recommended Keflex, pain control, splint and follow-up with [facility] specialist/hand specialist tomorrow for the next day. Patient was placed in a splint. Wound was cleaned prior with soapy water. Patient was also provided a sling. I gave her a shot of Rocephin here in the ER along with prescribing her the Keflex. Patient was also prescribed hydrocodone for pain. Patient was stable with recommendation to call hand specialist first thing in the morning after the open. Diagnostic Imaging Diagonstic Imaging: Xray Comments Date of Exam:02/13/22 HAND 3 VIEW RIGHT INDICATION: Pain status post injury. COMPARISON: None. FINDINGS: Multiple radiographic views of the right hand were obtained. There is acute oblique oriented fracture of the distal fifth metacarpal shaft. There is moderate displacement with angulation at the fracture site. There is no intra-articular extension. Joint spaces are otherwise maintained. There is suggestion of soft tissue emphysema. No unexpected radiopaque foreign bodies are seen. IMPRESSION: 1. Acute fracture of the fifth metacarpal as above. Departure Impression Primary Impression: Open fracture of fifth metacarpal bone of right hand Qualified Codes: S62.326B - Displaced fracture of shaft of fifth metacarpal bone, right hand, initial encounter for open fracture Disposition: HOME, SELF-CARE Condition: Stable Departure-Patient Inst. Referrals: [facility] (PCP/Family) Primary Care Physician Patient Instructions: Hand Fracture (DC) Add. Discharge Instructions: Keep hand elevated Please call [facility] orthopedics in [place] first thing in the morning to arrange for an orthopedic consult. Please tell them you have an open fracture Scripts Hydrocodone/Acetaminophen (Hydrocodone-Acetamin 5-325 mg) 1 Each Tablet 1 TAB PO Q6H PRN for PAIN-MODERATE (5-7), #10 TAB Prov: JENARO GALAVIZ DO 02/13/22 Cephalexin (Cephalexin) 500 Mg Tablet 500 MG PO QID, #20 TAB 0 Refills Prov: JENARO GALAVIZ DO 02/13/22 JENARO GALAVIZ DO Feb 13, 2022 16:29
[2022-02-13] MEDS ORDERED: TETANUS,DIPTH,PERTUSS P/F (BOOSTRIX) 0.5 ML VIAL IM ONE (16:30)
--- NOTE | 2022-02-13 16:54 | Diagnostic Imaging Report ---
INDICATION: Pain status post injury. COMPARISON: None. FINDINGS: Multiple radiographic views of the right hand were obtained. There is acute oblique oriented fracture of the distal fifth metacarpal shaft. There is moderate displacement with angulation at the fracture site. There is no intra-articular extension. Joint spaces are otherwise maintained. There is suggestion of soft tissue emphysema. No unexpected radiopaque foreign bodies are seen. IMPRESSION: 1. Acute fracture of the fifth metacarpal as above. Dictated by: Dictated on workstation # [id number]
[2022-02-13] MEDS ORDERED: HYDROcodone/APAP 5 MG/325 MG (LORTAB) TAB PO ONE (18:15)
[2022-02-13] MEDS ORDERED: ACHD5005 PO (18:20)
[2022-02-13] MEDS ORDERED: CEPH500T PO (18:20)
[2022-02-13] MEDS ORDERED: cefTRIAXone 1,000 MG VIAL IM ONE (18:30)
[2022-02-13] MEDS ORDERED: LIDOCAINE 1% INJ 20 ML VIAL INJ ONE (18:30)
[2022-02-13] MEDS ORDERED: fentaNYL INJ 100 MCG/2 ML AMP IM STA (18:39)
[2022-02-13] MEDS ORDERED: LIDOCAINE 1% INJ 50 ML (XYLOCAINE) VIAL ONE (18:42)
[2022-02-13 18:55] VITALS: BP 111/73
== END 2022-02-13 18:55 | disposition home or self-care (01) ==
LOC: EDUNIT# 16:24 → ER FS 16:25
DX: S62.326B Displaced fracture of shaft of fifth metacarpal bone, right hand, initial encounter for open fracture (principal); Z23 Encounter for immunization; W01.0XXA Fall on same level from slipping, tripping and stumbling without subsequent striking against object, initial encounter
CPT/HCPCS: 73130; 90715

== ENCOUNTER → 2022-02-24 | Outpatient (CLI) | payer SELFPAY ==
[~2022-02-24] MED LIST changes: +ACHD5005 PO; +CEPH500T PO
--- NOTE | 2022-02-24 15:42 | Diagnostic Imaging Report ---
INDICATION: Follow-up right hand fracture. TIME OF EXAM: 02:49 p.m. COMPARISON: Correlation is made with prior radiograph from 02/13/2022. FINDINGS: Hand has been placed in a fiberglass cast obscuring bone detail. Fracture of the distal fifth metacarpal is again noted. There has been overall improved alignment which is now near anatomic. Fracture line remains clearly visible. Remaining metacarpals are intact. IMPRESSION: Anatomic alignment of the fifth metacarpal fracture. Dictated by: Dictated on workstation # [id number]
== END ==
LOC: RAD FS 14:36
PROVIDERS: ATTEND Nurse Practitioner
DX: S62.336B Displaced fracture of neck of fifth metacarpal bone, right hand, initial encounter for open fracture (principal)
CPT/HCPCS: 73130

== ENCOUNTER → 2022-03-02 | Outpatient (CLI) | payer OTHER ==
[~2022-03-02] MED LIST changes: +TRZ50T PO
== END ==
LOC: ORTHO 14:00
PROVIDERS: ATTEND Orthopaedic Surgery
DX: S62.306A Unspecified fracture of fifth metacarpal bone, right hand, initial encounter for closed fracture (principal); X58.XXXA Exposure to other specified factors, initial encounter

== ENCOUNTER 2022-03-03 05:41 | Outpatient (CLI) | payer SELFPAY ==
[~2022-03-03] VITALS: Ht 157 cm; Wt 55.6 kg
[~2022-03-03 05:41] MED LIST changes: -TRZ50T PO
[2022-03-03] MEDS ORDERED: TRZ50T PO (08:33)
== END 2022-03-03 08:52 | disposition home or self-care (01) ==
LOC: PREOP 05:41
PROVIDERS: ATTEND Orthopaedic Surgery
DX: Z01.818 Encounter for other preprocedural examination (principal)

== ENCOUNTER 2022-03-06 05:59 | Day surgery (SDC) | payer OTHER ==
[~2022-03-06] VITALS: Ht 157 cm; Wt 55.6 kg
[2022-03-06] VITALS (11 sets, daily range): BP systolic 97–122; BP diastolic 73–88
[~2022-03-06 05:59] MED LIST changes: +TRZ50T PO
[2022-03-06] MEDS ORDERED: ceFAZolin INJECTION 1,000 MG VIAL IV ONE (06:15)
[2022-03-06] MEDS: LACTATED RINGERS 1,000 ML IV PRN ×2 (06:30→08:00)
[2022-03-06] MEDS ORDERED: LIDOCAINE PF 2% 5 ML (XYLOCAINE) VIAL ONE (06:54)
[2022-03-06] MEDS ORDERED: fentaNYL INJ 100 MCG/2 ML AMP ONE ×2 (06:54→08:42)
[2022-03-06] MEDS ORDERED: MIDAZOLAM 2 MG/2 ML (VERSED) VIAL ONE (06:54)
[2022-03-06] MEDS ORDERED: SEVOFLURANE (ULTANE) 15 ML INHAL SOLN ONE ×3 (06:54→08:24)
[2022-03-06] MEDS ORDERED: ONDANSETRON 4 MG/2 ML (SDV) Z0FRAN ONE (06:54)
[2022-03-06] MEDS ORDERED: proPOfol 200 MG/20 ML (DIPRIVAN) VIAL IV ONE (06:54)
[2022-03-06] MEDS ORDERED: BUPIVACAINE 0.25% 10 ML (SENSORCAINE) VIAL ONE (07:07)
--- NOTE | 2022-03-06 07:20 | Progress Note-Pre Operative ---
Pre-Operative Progress Note H&P Reviewed The H&P was reviewed, patient examined and no changes noted. Date Seen by Provider: March 06, 2022 Time Seen by Provider: 07:10 Date H&P Reviewed: March 06, 2022 Time H&P Reviewed: 07:10 Pre-Operative Diagnosis: Right Fifth Metacarpal Fracture DALIA ORMAN MD March 06, 2022 07:20
[2022-03-06] MEDS ORDERED: ACHD5005 PO (08:28)
--- NOTE | 2022-03-06 08:35 | Operative Report - Ortho ---
Operative Report Surgeon (s)/Oiler Bander (s) Surgeon DALIA ROMAN MD Oiler Bander n/a Pre-Operative Diagnosis Right Fifth Metacarpal Fracture Post-Operative Diagnosis same Operative Report Date of Procedure: March 06, 2022 Name of Procedure Performed: Closed Reduction and Percutaneous Pinning of Right Fifth Metacarpal Fracture Description & Findings After obtaining informed consent and marking the patient in the preoperative holding area, the patient did received intravenous antibiotics. Patient was taken to the operating room and general anesthesia was induced. Surgical t imeout was taken. The right upper extremity was prepped and draped in the usual sterile fashion. Closed reduction was performed using traction and 3 point bending. After closed reduction, the fracture remained with mild radial translation and some apex dorsal angulation; this was accepted. A K-wire was placed through the shaft of the 5th metacarpal into the shaft of the 4th met acarpal. C-arm was used to evaluate position of the wire and it was accepted. Next wire was placed just distal to the fracture site followed by a 3rd wire just under the articular surface. C-arm was used to evaluate and demonstrated acceptable reduction with acceptable position of wires. All wires were bent and cut. Final images were transferred to PACS. Wires were capped with Christopher balls. Pin sites were dressed with xeroform and 4x4's. Hand and wrist were padded with cast padding and an ulnar gutter splint was applied; secured with RYAN wraps. Patient tolerated the procedure well and was stable to the recovery room. Anesthesia Type General Estimated Blood Loss minimal Specimen(s) collected/removed None DALIA ROMAN MD March 06, 2022 08:34
--- NOTE | 2022-03-06 08:37 | Anesthesia-General Post-Op ---
General Patient Condition Mental Status/LOC: Same as Preop Cardiovascular: Satisfactory Nausea/Vomiting: Absent Respiratory: Satisfactory Pain: Controlled Complications: Absent Post Op Complications Complications None Follow Up Care/Instructions Patient Instructions None needed. Anesthesia/Patient Condition Patient Condition Patient is doing well, no complaints, stable vital signs, no apparent adverse anesthesia problems. No complications reported per nursing. ALE CASILLAS CRNA March 06, 2022 08:37
[2022-03-06] MEDS ORDERED: ONDANSETRON 4 MG/2 ML (SDV) Z0FRAN IVP PRN (08:45)
[2022-03-06] MEDS ORDERED: fentaNYL INJ 100 MCG/2 ML AMP IVP ONE (08:45)
[2022-03-06] MEDS ORDERED: MEPERIDINE (DEMEROL) INJ 50 MG/ML IVP ONE (08:45)
[2022-03-06] MEDS ORDERED: morphine INJ 10 MG/ML 1ML (SYR OR VIAL) IVP ONE (08:45)
[2022-03-06] MEDS ORDERED: HYDROcodone/APAP 5 MG/325 MG (LORTAB) TAB PO ONE (09:45)
--- NOTE | 2022-03-06 10:04 | Diagnostic Imaging Report ---
Result: History: 41 years-old Female with right 5th metacarpal fracture Comparison: 02/24/2022. Technique: 3 intraoperative fluoroscopic images of the right hand in the frontal, oblique and lateral projections. Fluoroscopic Time: 66.2 seconds Findings: Intraoperative fluoroscopic images were obtained during external fixation of the 5th metacarpal fracture with 3 K wires, transfixed to the 4th metacarpal as well. The 5th metacarpal fracture is again noted. Impression: Fluoroscopic intraoperative images obtained during fixation of the 5th metacarpal fracture. Dictated by: Dictated on workstation # [id number]
== END 2022-03-06 10:20 | disposition home or self-care (01) ==
LOC: SDC 05:59
PROVIDERS: ATTEND Orthopaedic Surgery
DX: S62.336A Displaced fracture of neck of fifth metacarpal bone, right hand, initial encounter for closed fracture (principal)
CPT/HCPCS: 76000; 84703; 87081

== ENCOUNTER → 2022-03-30 | Outpatient (CLI) | payer OTHER | LOC: ORTHO 15:11 | PROVIDERS: ATTEND Orthopaedic Surgery | DX: Z47.89 Encounter for other orthopedic aftercare (principal) ==

== ENCOUNTER → 2022-04-13 | Outpatient (CLI) | payer OTHER ==
--- NOTE | 2022-04-13 10:41 | Diagnostic Imaging Report ---
INDICATION: Right hand pain 3 views the right hand show an oblique fracture of the distal shaft of the right 5th metacarpal with anterior angulation of the distal component. The internal fixation hardware has been removed since 03/06/2022. There is no obvious bone callus bridging of the fracture. IMPRESSION: Minimally displaced and angulated fracture of the distal aspect of the right 5th metacarpal with no radiographic evidence of osseous bridging callus. Dictated by: Dictated on workstation # [id number]
== END ==
LOC: RAD FS 09:57
PROVIDERS: ATTEND Orthopaedic Surgery
DX: Z47.89 Encounter for other orthopedic aftercare (principal); M25.441 Effusion, right hand
CPT/HCPCS: 73130

== ENCOUNTER → 2022-04-13 | Outpatient (CLI) | payer OTHER | LOC: ORTHO 15:41 | PROVIDERS: ATTEND Orthopaedic Surgery | DX: Z47.89 Encounter for other orthopedic aftercare (principal) ==

== ENCOUNTER 2022-06-23 15:42 | Emergency (ER) | payer OTHER ==
[~2022-06-23] VITALS: Ht 154.9 cm; Wt 58.9 kg
[2022-06-23 15:50] VITALS: BP 135/80
[2022-06-23] MEDS ORDERED: ACETAMINOPHEN 500 MG TAB (TYLENOL) PO ONE (16:00)
[2022-06-23] MEDS ORDERED: KETOROLAC 30 MG/ML VIAL IVP ONE (16:00)
[2022-06-23 16:05] LABS: BASOPHILS # (AUTO) 0.1 10^3/uL (0.0-0.1); BASOPHILS % (AUTO) 1 % (0-10); EOSINOPHILS # (AUTO) 0.1 10^3/uL (0.0-0.3); EOSINOPHILS % (AUTO) 1 % (0-10); HEMATOCRIT 40 % (35-52); LYMPHOCYTES # (AUTO) 2.8 10^3/uL (1.0-4.0); LYMPHOCYTES % (AUTO) 30 % (12-44); MEAN CORPUSCULAR HEMOGLOBIN 32 pg (25-34); MEAN CORPUSCULAR HGB CONC 35 g/dL (32-36); MEAN CORPUSCULAR VOLUME 91 fL (80-99); MEAN PLATELET VOLUME 9.6 fL (9.0-12.2); MONOCYTES # (AUTO) 0.4 10^3/uL (0.0-1.0); MONOCYTES % (AUTO) 5 % (0-12); NEUTROPHILS % (AUTO) 64 % (42-75); PLATELET COUNT 320 10^3/uL (130-400); WHITE BLOOD COUNT 9.4 10^3/uL (4.3-11.0)
--- NOTE | 2022-06-23 16:05 | ED EENT ---
History of Present Illness General Chief Complaint: Ear Problems Stated Complaint: EAR PAIN Source: patient Exam Limitations: no limitations History of Present Illness Date Seen by Provider: Jun 23, 2022 Time Seen by Provider: 15:43 Initial Comments 42-year-old female with no pertinent past medical history coming in due to left ear pain radiating down the left side of her neck. Been ongoing for the past couple weeks, worsening, throbbing, moderate, slightly better with ibuprofen which she last had this morning. She says she had a temperature of 101 this morning but has not had a fever since then. Is on amoxicillin. Went to the urgent care and was referred to the ER since they were unsure what was happening. Had COVID last month so does not want retested. Denies any chest pain, shortness of breath, abdominal pain, nausea, vomiting, diarrhea, weakness, numbness, or any other concerns. Allergies and Home Medications Allergies Coded Allergies: prochlorperazine (Unverified Adverse Reaction, Unknown, 03/03/22) sulfamethoxazole (Unverified Adverse Reaction, Unknown, 03/03/22) trimethoprim (Unverified Adverse Reaction, Unknown, 03/03/22) Patient Home Medication List Home Medication List Reviewed: Yes Hydrocodone/Acetaminophen (Hydrocodone-Acetamin 5-325 mg) 5 Mg-325 Mg Tablet, 1 TAB PO Q4H PRN for PAIN-MODERATE (5-7) Prescribed by: DALIA ROMAN MD on 03/06/22 0829 Ibuprofen (Ibuprofen) 800 Mg Tablet, 800 MG PO Q8H PRN for PAIN Prescribed by: LIT SCOTT on 08/03/19 220 [place] Carbonate ([place] Carbonate) 150 Mg Capsule, 300 TID, (Reported) Entered as Reported by: MARQUISE MURO on 02/17/19 1736 Trazodone HCl (Trazodone HCl) 50 Mg Tablet, 50 MG PO DAILY, (Reported) Entered as Reported by: HERMINIO MENDOZA on 03/03/22 0833 Review of Systems Review of Systems Constitutional: fever Eyes: Denies Photophobia Ears: Denies Dizziness; Pain; Denies Purulent Discharge Nose: congestion Mouth: no symptoms reported Throat: no symptoms reported Respiratory: no symptoms reported Cardiovascular: no symptoms reported Gastrointestinal: no symptoms reported Musculoskeletal: no symptoms reported Skin: no symptoms reported Neurological: No Symptoms Reported Hematologic/Lymphatic: No Symptoms Reported Immunological/Allergic: no symptoms reported All Other Systems Reviewed Negative Unless Noted: Yes Past Awwrlbe-Onakxc-Gemukl Hx Patient Social History Substance use?: No Seasonal Allergies Seasonal Allergies: Yes Past Medical History Surgeries: Yes (C/S X 3) Appendectomy, Section, Gallbladder, Tonsillectomy Respiratory: Yes Asthma Currently Using CPAP: No Currently Using BIPAP: No Cardiac: No Neurological: Yes Headaches /Migraines Genitourinary: Yes (BLADDER STRETCHING) Kidney Stones, UTI-Chronic Gastrointestinal: No Musculoskeletal: Yes Fractures Endocrine: Yes (? THYROID PROBLEMS DUE TO WEIGHT LOSS) HEENT: No Cancer: No Psychosocial: Yes (night terrors) Sleep Difficulties, Anxiety, PTSD, Depression Integumentary: No Blood Disorders: No Physical Exam Vital Signs Vital Signs - First Documented 06/23/22 15:50 Temp 36.8 Pulse 90 Resp 16 B/P (MAP) 135/80 (98) Pulse Ox 98 O2 Delivery Room Air Height, Weight, BMI Height: 5'2.00" Weight: 155lbs. oz. 70.675598tv; 22.55 BMI Method:Stated General Appearance: WD/WN, no apparent distress Eyes: bilateral eye normal inspection, bilateral eye PERRL, bilateral eye EOMI Ears: bilateral ear auricle normal, bilateral ear canal normal, bilateral ear TM normal Nose: normal inspection Mouth/Throat: normal mouth inspection, pharynx normal Neck: non-tender, full range of motion, supple, normal inspection, other (No meningismus, negative jolt test) Cardiovascular: regular rate, rhythm, no edema, no murmur Respiratory: chest non-tender, lungs clear, normal breath sounds, no respirat ory distress, no accessory muscle use Gastrointestinal: normal bowel sounds, non tender, soft; No distended, No guarding, No rebound Neurologic/Psychiatric: no motor/sensory deficits, alert, normal mood/affect Skin: normal color, warm/dry Progress/Results/Core Measures Results/Orders Lab Results Laboratory Tests Test 06/23/22 16:00 Range/Units White Blood Count 9.4 4.3-11.0 10^3/uL Red Blood Count 4.45 3.80-5.11 10^6/uL Hemoglobin 14.0 11.5-16.0 g/dL Hematocrit 40 35-52 % Mean Corpuscular Volume 91 80-99 fL Mean Corpuscular Hemoglobin 32 25-34 pg Mean Corpuscular Hemoglobin Concent 35 32-36 g/dL Red Cell Distribution Width 11.9 10.0-14.5 % Platelet Count 320 130-400 10^3/uL Mean Platelet Volume 9.6 9.0-12.2 fL Immature Granulocyte % (Auto) 0 % Neutrophils (%) (Auto) 64 42-75 % Lymphocytes (%) (Auto) 30 12-44 % Monocytes (%) (Auto) 5 0-12 % Eosinophils (%) (Auto) 1 0-10 % Basophils (%) (Auto) 1 0-10 % Neutrophils # (Auto) 6.0 1.8-7.8 10^3/uL Lymphocytes # (Auto) 2.8 1.0-4.0 10^3/uL Monocytes # (Auto) 0.4 0.0-1.0 10^3/uL Eosinophils # (Auto) 0.1 0.0-0.3 10^3/uL Basophils # (Auto) 0.1 0.0-0.1 10^3/uL Immature Granulocyte # (Auto) 0.0 0.0-0.1 10^3/uL Erythrocyte Sedimentation Rate 3 0-20 MM/HR Sodium Level 141 135-145 MMOL/L Potassium Level 3.9 3.6-5.0 MMOL/L Chloride Level 106 98-107 MMOL/L Carbon Dioxide Level 25 21-32 MMOL/L Anion Gap 10 5-14 MMOL/L Blood Urea Nitrogen 7 7-18 MG/DL Creatinine 0.71 0.60-1.30 MG/DL Estimat Glomerular Filtration Rate 108 BUN/Creatinine Ratio 10 Glucose Level 94 70-105 MG/DL Calcium Level 10.6 H 8.5-10.1 MG/DL C-Reactive Protein < 0.30 <0.50 MG/DL Serum Test, Qualitative NEGATIVE NEGATIVE My Orders Orders - BRENDA COSTA MD Basic Metabolic Panel (06/23/22 15:59) Cbc With Automated Diff (06/23/22 15:59) Erythrocyte Sedimentation Rate (06/23/22 15:59) Crp Fs (06/23/22 15:59) Ketorolac Injection (Toradol Injection) (06/23/22 16:00) Acetaminophen Tablet (Tylenol Tablet) (06/23/22 16:00) Ct Neck (Soft Tissue) W (06/23/22 16:00) Hcg,Qualitative Serum (06/23/22 16:02) Iohexol Injection (Omnipaque 350 Mg/Ml 1 (06/23/22 16:15) Received Contrast (Hold Metformin- Contr (06/23/22 16:15) Ns (Ivpb) (Sodium Chloride 0.9% Ivpb Bag (06/23/22 16:15) Medications Given in ED Current Medications Medications Dose Ordered Sig/Rosana Route Start Time Stop Time Status Last Admin Dose Admin Acetaminophen 1,000 mg ONCE ONCE PO 06/23/22 16:00 06/23/22 16:01 DC 06/23/22 16:06 1,000 MG Iohexol 100 ml ONCE ONCE IV 06/23/22 16:15 06/23/22 16:16 DC 06/23/22 16:34 75 ML Ketorolac Tromethamine 15 mg ONCE ONCE IVP 06/23/22 16:00 06/23/22 16:01 DC 06/23/22 16:06 15 MG Sodium Chloride 100 ml ONCE ONCE IV 06/23/22 16:15 06/23/22 16:16 DC 06/23/22 16:34 100 ML Vital Signs/I&O 06/23/22 15:50 Temp 36.8 Pulse 90 Resp 16 B/P (MAP) 135/80 (98) Pulse Ox 98 O2 Delivery Room Air Progress Progress Note : Progress Note 42-year-old female coming in due to left ear pain going down to the left side of her neck. ABCs were intact and vitals were stable on presentation. Physical exam with some tenderness in that area, some over the mastoid as well. I do not appreciate any significant swelling. She has no meningismus, negative jolt test, is afebrile here, and I have no concerns for meningitis based on her exam. She has no signs of otitis media on my exam, but has been on antibiotics which likely have treated if that is the case. An IV was placed and basic labs were obtained including inflammatory markers which were essentially undetectable. CTA soft tissue neck with contrast ordered to assess for any type of soft tissue infection or mastoiditis. This was negative for acute findings. It is unclear what the cause of the patient's pain is at this time, but does not seem to be life-threatening or severe infection. I believe she stable for discharge with outpatient follow-up. She was sent home with strict return precautions Diagnostic Imaging Diagonstic Imaging: CT (soft tissue neck) Comments [facility], [place] NAME: BEAU GUZMAN [facility] REC#: [id number] PT STATUS: REG ER : 1980 PHYSICIAN: BRENDA COSTA MD ADMIT DATE: 06/23/22/ER FS Draft Date of Exam:06/23/22 CT NECK (SOFT TISSUE) W PROCEDURE: CT neck soft tissue with contrast. TECHNIQUE: Multiple contiguous axial images were obtained through the neck after the administration of contrast. Auto Exposure Controls were utilized during the CT exam to meet ALARA standards for radiation dose reduction. INDICATION: Headache. Left ear pain. Nasal congestion. COMPARISON: None. FINDINGS: The posterior nasopharynx and oropharynx demonstrate appropriate symmetry. There is no displacement of the parapharyngeal fat planes. There is no abnormal process evident within the prevertebral or retropharyngeal space. There is no evidence of abnormal thickening of the epiglottis or aryepiglottic folds. The vocal folds appear symmetric. The parotid, submandibular and thyroid gland are unremarkable. No pathologically enlarged cervical lymph nodes are evident. No focal inflammatory changes are demonstrated. No soft tissue mass or fluid collection demonstrated. The vascular structures the neck demonstrate no evidence of high-grade stenosis on this nondedicated exam. The visualized lung apices are clear. The visualized intracranial contents demonstrate no evidence of pathologic intracranial enhancement or intracranial mass effect. Visualized orbital contents are unremarkable. The visualized paranasal sinuses are clear. The mastoids and middle ears are clear. No acute osseous abnormality in the cervical spine. IMPRESSION: 1. Appropriate symmetry of the aerodigestive tract. 2. No evidence of pathologic adenopathy. 3. No soft tissue mass, fluid collection or focal inflammatory changes demonstrated. Dictated on workstation # [id number] Dict: 06/23/22 1640 Trans: 06/23/22 1647 [id number] Interpreted by: JEROMY ECHAVARRIA DO Electronically signed by: Departure Impression Primary Impression: Left ear pain Additional Impression: Neck pain on left side Disposition: 01 HOME, SELF-CARE Condition: Stable Departure-Patient Inst. Decision time for Depature: 16:54 Referrals: ENRIQUETA RAMÍREZ (PCP) Primary Care Physician [facility] (Family) Primary Care Physician Patient Instructions: Neck Pain ED Add. Discharge Instructions: Your ear looks good today, its possible you had an infection and it is being treated with the antibiotics, and that is why it looks good. Your labs look very good and your inflammatory markers are undetectable which is a good sign that there is no active infection or serious infection. The CT of your neck going all the way back behind your ear also looks good with no concerns for infection. Possible this is muscular in nature and you are having some spasms around her neck or to possibly have something viral that is causing pain. I recommend 600 mg of ibuprofen every 6 hours as well as 1000 mg of Tylenol every 6 hours. I sent a muscle relaxer to your pharmacy that you can try to take as well. Scripts Cyclobenzaprine HCl (Cyclobenzaprine HCl) 10 Mg Tablet 10 MG PO Q8H PRN for SPASMS for 5 Days, #15 TAB 0 Refills Prov: BRENDA COSTA MD 06/23/22 Work/School Note: Work Release Form Date Seen in the Emergency Department: Jun 23, 2022 Return to Work: Jun 24, 2022 Restrictions: No Restrictions BRENDA COSTA MD Jun 23, 2022 16:05
[2022-06-23] MEDS ORDERED: IOHEXOL 350 MG/ML 100 ML (OMNIPAQUE 350) VIAL IV ONE (16:15)
[2022-06-23] MEDS ORDERED: NS 100 ML (IVPB) BAG IV ONE (16:15)
[2022-06-23] MEDS ORDERED: HOLD METFORMIN - RECEIVED CONTRAST 20 ML VIAL IV SCH (16:15)
[2022-06-23 16:24] LABS: BUN/CREATININE RATIO 10; CALCIUM 10.6 MG/DL (8.5-10.1); CARBON DIOXIDE 25 MMOL/L (21-32); CHLORIDE 106 MMOL/L (98-107); CREATININE SERUM 0.71 MG/DL (0.60-1.30); GFR ESTIMATED 108; GLUCOSE 94 MG/DL (70-105); POTASSIUM 3.9 MMOL/L (3.6-5.0); SODIUM 141 MMOL/L (135-145)
[2022-06-23 16:28] LABS: ERYTHROCYTE SEDIMENTATION RATE 3 MM/HR (0-20)
--- NOTE | 2022-06-23 16:47 | Diagnostic Imaging Report ---
PROCEDURE: CT neck soft tissue with contrast. TECHNIQUE: Multiple contiguous axial images were obtained through the neck after the administration of contrast. Auto Exposure Controls were utilized during the CT exam to meet ALARA standards for radiation dose reduction. INDICATION: Headache. Left ear pain. Nasal congestion. COMPARISON: None. FINDINGS: The posterior nasopharynx and oropharynx demonstrate appropriate symmetry. There is no displacement of the parapharyngeal fat planes. There is no abnormal process evident within the prevertebral or retropharyngeal space. There is no evidence of abnormal thickening of the epiglottis or aryepiglottic folds. The vocal folds appear symmetric. The parotid, submandibular and thyroid gland are unremarkable. No pathologically enlarged cervical lymph nodes are evident. No focal inflammatory changes are demonstrated. No soft tissue mass or fluid collection demonstrated. The vascular structures the neck demonstrate no evidence of high-grade stenosis on this nondedicated exam. The visualized lung apices are clear. The visualized intracranial contents demonstrate no evidence of pathologic intracranial enhancement or intracranial mass effect. Visualized orbital contents are unremarkable. The visualized paranasal sinuses are clear. The mastoids and middle ears are clear. No acute osseous abnormality in the cervical spine. IMPRESSION: 1. Appropriate symmetry of the aerodigestive tract. 2. No evidence of pathologic adenopathy. 3. No soft tissue mass, fluid collection or focal inflammatory changes demonstrated. Dictated by: Dictated on workstation # [id number]
[2022-06-23] MEDS ORDERED: CYCL10TA25 PO (16:55)
== END 2022-06-23 17:06 | disposition home or self-care (01) ==
LOC: EDUNIT# 15:42 → ER FS 15:43
DX: H92.02 Otalgia, left ear (principal); M54.2 Cervicalgia; Z86.16 Personal history of COVID-19
CPT/HCPCS: 36415; 70491; 80048; 84703; 85025; 85652; 86141; Q9967